=== PATIENT | female | born 1950 | race Native Hawaiian/Other Pacific Islander ===

== ENCOUNTER 2016-11-23 10:25 | Day surgery (SDC) | payer MEDICARE, OTHER ==
[2016-11-21 08:28] VITALS: BMI 30.7
[~2016-11-23 10:25] MED LIST: LACTATED RINGERS 1,000 ML IV SCH
[2016-11-23 12:17] VITALS: RESP 16; TEMP 98.8
[2016-11-23] MEDS ORDERED: LIDOCAINE 1% 20 ML VIAL (10MG/ML) FOR IV START INTRADERMA ONE (12:24)
[2016-11-23] MEDS ORDERED: PROPOFOL 10 MG/ML 20 ML VIAL IV ONE (13:11)
--- NOTE | 2016-11-23 13:41 | P.PCN ---
Date of Procedure: 11/23/16 Preoperative Diagnosis: Postoperative Diagnosis: Procedure(s) Performed: Procedure: Total colonoscopy. Preoperative diagnosis: Unexplained right-sided abdominal pain. Postoperative diagnosis: Examination of the colon and terminal ileum within normal limits. Preparation: HalfLytely prep. Sedation: Was provided by anesthesia. Brief clinical history: The patient is a 65-year-old female who I have evaluated in the office regarding unexplained abdominal pain. There is no change in bowel habits. CT of the abdomen was not revealing. A prior colonoscopy was more than 9 years ago. Procedure: With the patient on her left lateral decubitus position and after informed consent and adequate sedation, the perianal area was inspected and it did not show any fissures or fistulas. There were no masses felt on digital rectal examination. The Olympus CFQ 160L video colonoscope was then inserted in the rectum in the usual fashion and advanced to the cecum. I intubated the ileocecal valve and examined the terminal ileum. Terminal ileum and colon appeared healthy with no edema, erythema, friability, ulceration, exudation or spontaneous bleeding. No polyps or tumors were seen or any obvious diverticular disease or other pathology. I retroflexed the endoscope in the rectum before the endoscope was withdrawn. The patient tolerated the procedure well. Plan: The patient was reassured. She will follow-up with you as planned and I will keep you updated on her progress. Implants: Indications for Procedure: Operative Findings: Description of Procedure:
[2016-11-23 14:04] VITALS: BP 150/87; PULSE 65
== END 2016-11-23 14:09 | disposition home or self-care (01) ==
LOC: ORWHC2ENDO 10:25
DX: R10.9 Unspecified abdominal pain (principal); I10 Essential (primary) hypertension; Z79.82 Long term (current) use of aspirin; Z79.899 Other long term (current) drug therapy; Z88.0 Allergy status to penicillin
CPT/HCPCS: 45378; J2704

== ENCOUNTER → 2018-03-06 | Outpatient (CLI) | payer MEDICARE, OTHER ==
--- NOTE | 2018-03-07 08:53 | MM ---
Reason for exam: screening (asymptomatic). Last mammogram was performed 3 years and 1 month ago. History: Patient is postmenopausal. Family history of breast cancer in cousin. Took estrogen for 7 years. Physical Findings: A clinical breast exam by your physician is recommended on an annual basis and results should be correlated with mammographic findings. MG 3D Screening Mammo W/Cad Bilateral CC and MLO view(s) were taken. Prior study comparison: January 21, 2015, bilateral MG screening mammo w CAD. August 04, 2011, [facility] DIGITAL RIGHT MAMMOGRAM w/CAD. The breast tissue is heterogeneously dense. This may lower the sensitivity of mammography. Stable benign calcifications. There is no discrete abnormality. No significant changes when compared with prior studies. ASSESSMENT: Benign, BI-RAD 2 RECOMMENDATION: Routine screening mammogram of both breasts in 1 year.
== END | disposition home or self-care (01) ==
LOC: RADMAMWWP 11:31
PROVIDERS: ATTEND Family Medicine
DX: Z12.31 Encounter for screening mammogram for malignant neoplasm of breast (principal)
CPT/HCPCS: 77063; 77067

== ENCOUNTER → 2018-10-09 | Outpatient (CLI) | payer MEDICARE, OTHER ==
[2018-10-09 13:57] LABS: Blood Urea Nitrogen 22 mg/dL (7-17)
--- NOTE | 2018-10-09 17:10 | CT ---
EXAMINATION TYPE: CT chest w con DATE OF EXAM: 10/09/2018 COMPARISON: 06/09/2010 HISTORY: Pulmonary nodule CT DLP: 291.8 mGycm, Automated exposure control for dose reduction was used. CONTRAST: Performed injected with 100 mL of Isovue 300. TECHNIQUE: Axial images were obtained at 5 mm thick sections. Reconstructed images are reviewed on [employer] computer in the coronal plane. FINDINGS: Portion of the thyroid visualized is normal. There is a linear area of increased thickening within the right middle lobe measuring 0.5 cm in trans verse dimension. Series 4 image 24. Small nodule right middle lobe measures 0.5 cm. Series 4 image 28 . No enlarged mediastinal or hilar adenopathy is evident. The ascending aorta diameter at the level o f the main pulmonary artery is 3.2 cm. The main pulmonary artery diameter at the bifurcation is 2.[address] sections are obtained through the upper abdomen. Abdomen is essentially unremarkable. IMPRESSIONS: 1. There are 2 small areas of increased density within the right midlung. Short-term follow-up is rec ommended with CT chest in 3 months.
== END | disposition home or self-care (01) ==
LOC: RADCTMAIN 13:02
PROVIDERS: ATTEND Physician Assistant Medical
DX: R91.8 Other nonspecific abnormal finding of lung field (principal); Z01.812 Encounter for preprocedural laboratory examination; I10 Essential (primary) hypertension
CPT/HCPCS: 82565; 84520; 71260; 36415; Q9967

== ENCOUNTER → 2019-03-14 | Outpatient (CLI) | payer MEDICARE, OTHER ==
--- NOTE | 2019-03-17 14:18 | MM ---
Reason for exam: screening (asymptomatic). Last mammogram was performed 1 year ago. History: Patient is postmenopausal. Family history of breast cancer in cousin. Took estrogen for 7 years. Physical Findings: A clinical breast exam by your physician is recommended on an annual basis and results should be correlated with mammographic findings. MG 3D Screening Mammo W/Cad Bilateral CC and MLO view(s) were taken. Prior study comparison: March 06, 2018, bilateral MG 3d screening mammo w/cad. January 21, 2015, bilateral MG screening mammo w CAD. The breast tissue is heterogeneously dense. This may lower the sensitivity of mammography. There are benign appearing round vasculr calcifications bilaterally. There is chronic nodularity in the right breast. There is no discrete abnormality. ASSESSMENT: Benign, BI-RAD 2 RECOMMENDATION: Routine screening mammogram of both breasts in 1 year.
== END | disposition home or self-care (01) ==
LOC: RADMAMWWP 09:31
PROVIDERS: ATTEND Family Medicine
DX: Z12.31 Encounter for screening mammogram for malignant neoplasm of breast (principal)
CPT/HCPCS: 77063; 77067

== ENCOUNTER 2019-07-30 06:14 | Emergency (ER) | payer MEDICARE, OTHER ==
[2019-07-30 06:24] VITALS: TEMP 97.8
[2019-07-30] MEDS ORDERED: hydrALAZINE HCL 20 MG/ML 1 ML VIAL IVP STA (06:24)
--- NOTE | 2019-07-30 06:31 | ED ---
Recheck HPI - General Chief Complaint: Recheck/Abnormal Lab/Rx Stated Complaint: hypertension Time Seen by Provider: 07/30/19 06:22 Source: patient Mode of arrival: EMS - History of Present Illness Initial Comments: 68-year-old female presenting today for chief complaint of elevated blood pressure out of medications x1 week , just feeling "off" x 1 day. She states that she has history of elevated blood pressure and has been out of her medication for 1 week due to an area between her primary care physician and the pharmacy she uses. 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 She states she just fell off this morning took her blood pressure and noticed that it was 220/117. She states she was concerned and called EMS for transportation to the emergency department. Patient denies any history of CVA or myocardial infarction. Patient denies any chest pain shortness of breath dizziness visual changes headache nausea vomiting epigastric pain back pain leg swelling decreased urine output or any other complaints at this time. Patient appears well she is not diaphoretic does not appear in distress normal respiration rate. - Related Data Home Medications Medication Instructions Recorded Confirmed Aspirin 325 mg PO DAILY 10/29/14 11/21/16 Losartan/Hydrochlorothiazide 1 each PO DAILY 11/21/16 11/23/16 [Losartan-Hctz 100-25 mg Tab] Previous Rx's Medication Instructions Recorded Losartan/Hydrochlorothiazide 1 tab PO DAILY 7 Days #7 tab 07/30/19 [Losartan-Hctz 100-25 mg Tab] Allergies Allergy/AdvReac Type Severity Reaction Status Date / Time amoxicillin [From Augmentin] AdvReac Diarrhea Verified 07/30/19 06:24 clavulanic acid AdvReac Diarrhea Verified 07/30/19 06:24 [From Augmentin] Review of Systems ROS Statement: Those systems with pertinent positive or pertinent negative responses have been documented in the HPI. ROS Other: All systems not noted in ROS Statement are negative. Past Medical History Past Medical History: Hypertension, Osteoarthritis (OA) History of Any Multi-Drug Resistant Organisms: None Reported Past Surgical History: Hysterectomy Additional Past Surgical History / Comment(s): cervical fusion Past Anesthesia/Blood Transfusion Reactions: No Reported Reaction Past Psychological History: No Psychological Hx Reported Smoking Status: Former smoker - Past Family History Mother Family Medical History: No Reported History General Exam - General Exam Comments Initial Comments: General: The patient is awake and alert, in no distress, and does not appear acutely ill. Eye: +3 mm pupils are equal, round and reactive to light, extra-ocular movements are intact. No nystagmus. There is normal conjunctiva bilaterally. No signs of icterus. Ears, nose, mouth and throat: There are moist mucous membranes and no oral lesions. Neck: The neck is supple, there is no tenderness or JVD. Cardiovascular: There is a regular rate and rhythm. No murmur, rub or gallop is appreciated. Respiratory: Lungs are clear to auscultation, respirations are non-labored, breath sounds are equal. No wheezes, stridor, rales, or rhonchi. Gastrointestinal: Soft, non-distended, non-tender abdomen without masses or organomegaly noted. There is no rebound or guarding present. No pulsatile masses Musculoskeletal: Normal ROM, no tenderness. Strength 5/5. Sensation intact. Pulses equal bilaterally 2+. Neurological: A&O x 3. CN II-XII intact, There are no obvious motor or sensory deficits. Coordination appears grossly intact. Speech is normal. Skin: Skin is warm and dry and no rashes or lesions are noted. No LE edema. Psychiatric: Cooperative, appropriate mood & affect, normal judgment. Course Vital Signs 07/30/19 07/30/19 07/30/19 06:16 06:49 07:37 Temperature 97.8 F Pulse Rate 67 80 80 Respiratory 18 16 18 Rate Blood Pressure 215/99 181/82 158/78 O2 Sat by Pulse 98 96 98 Oximetry 07/30/19 07:58 Temperature Pulse Rate 80 Respiratory 18 Rate Blood Pressure 173/85 O2 Sat by Pulse 98 Oximetry Medical Decision Making - Medical Decision Making 68-year-old female presenting for elevated blood pressure. Patient has been off her medications for the past week. Patient unable to get refills. Patient hype rtensive on arrival with no complaints she states she did feel slightly off this morning otherwise no focal or symptoms. Denies any symptoms or sensation of feeling unwell on arrival. Patient blood pressure trending downward after IV treatment. Laboratory studies stable. EKG no acute findings. No history of CP or SOB. Patient was given 1 oral dose for extended treatment. Patient ambulated after treatment denies dizziness or lightheadedness. I discussed elevated glucose and importance of PCP management including obtaining HgA1c. Patient verbalized understanding was agreeable to both discharge and care plan. Discussed case with Dr Andre who reviewed case/EKG he is agreeable to plan and discharge of patient. - Lab Data Result diagrams: 07/30/19 06:30 07/30/19 06:30 Lab Results 07/30/19 07/30/19 07/30/19 Range/Units 06:30 06:30 06:30 WBC 5.9 (3.8-10.6) k/uL RBC 4.02 (3.80-5.40) m/uL Hgb 11.2 L (11.4-16.0) gm/dL Hct 33.2 L (34.0-46.0) % MCV 82.6 (80.0-100.0) fL MCH 27.8 (25.0-35.0) pg MCHC 33.7 (31.0-37.0) g/dL RDW 13.2 (11.5-15.5) % Plt Count 365 (150-450) k/uL Neutrophils % 60 % Lymphocytes % 26 % Monocytes % 4 % Eosinophils % 7 % Basophils % 1 % Neutrophils # 3.5 (1.3-7.7) k/uL Lymphocytes # 1.5 (1.0-4.8) k/uL Monocytes # 0.3 (0-1.0) k/uL Eosinophils # 0.4 (0-0.7) k/uL Basophils # 0.1 (0-0.2) k/uL Sodium 141 (137-145) mmol/L Potassium 3.8 (3.5-5.1) mmol/L Chloride 109 H (98-107) mmol/L Carbon Dioxide 23 (22-30) mmol/L Anion Gap 9 mmol/L BUN 20 H (7-17) mg/dL Creatinine 0.62 (0.52-1.04) mg/dL Est GFR (CKD-EPI)AfAm >90 (>60 ml/min/1.73 sqM) Est GFR (CKD-EPI)NonAf >90 (>60 ml/min/1.73 sqM) Glucose 143 H (74-99) mg/dL Calcium 8.8 (8.4-10.2) mg/dL Total Bilirubin 0.4 (0.2-1.3) mg/dL AST 22 (14-36) U/L ALT 14 (4-34) U/L Alkaline Phosphatase 114 (38-126) U/L Troponin I <0.012 (0.000-0.034) ng/mL Total Protein 6.7 (6.3-8.2) g/dL Albumin 3.7 (3.5-5.0) g/dL Urine Color Urine Appearance (Clear) Urine pH (5.0-8.0) Ur Specific [place] (1.001-1.035) Urine Protein (Negative) Urine Glucose (UA) (Negative) Urine Ketones (Negative) Urine Blood (Negative) Urine Nitrite (Negative) Urine Bilirubin (Negative) Urine Urobilinogen (<2.0) mg/dL Ur Leukocyte Esterase (Negative) Urine RBC (0-5) /hpf Urine WBC (0-5) /hpf Urine Mucus (None) /hpf 07/30/19 Range/Units 06:40 WBC (3.8-10.6) k/uL RBC (3.80-5.40) m/uL Hgb (11.4-16.0) gm/dL Hct (34.0-46.0) % MCV (80.0-100.0) fL MCH (25.0-35.0) pg MCHC (31.0-37.0) g/dL RDW (11.5-15.5) % Plt Count (150-450) k/uL Neutrophils % % Lymphocytes % % Monocytes % % Eosinophils % % Basophils % % Neutrophils # (1.3-7.7) k/uL Lymphocytes # (1.0-4.8) k/uL Monocytes # (0-1.0) k/uL Eosinophils # (0-0.7) k/uL Basophils # (0-0.2) k/uL Sodium (137-145) mmol/L Potassium (3.5-5.1) mmol/L Chloride (98-107) mmol/L Carbon Dioxide (22-30) mmol/L Anion Gap mmol/L BUN (7-17) mg/dL Creatinine (0.52-1.04) mg/dL Est GFR (CKD-EPI)AfAm (>60 ml/min/1.73 sqM) Est GFR (CKD-EPI)NonAf (>60 ml/min/1.73 sqM) Glucose (74-99) mg/dL Calcium (8.4-10.2) mg/dL Total Bilirubin (0.2-1.3) mg/dL AST (14-36) U/L ALT (4-34) U/L Alkaline Phosphatase (38-126) U/L Troponin I (0.000-0.034) ng/mL Total Protein (6.3-8.2) g/dL Albumin (3.5-5.0) g/dL Urine Color Light Yellow Urine Appearance Clear (Clear) Urine pH 6.5 (5.0-8.0) Ur Specific [place] 1.008 (1.001-1.035) Urine Protein Negative (Negative) Urine Glucose (UA) Negative (Negative) Urine Ketones Negative (Negative) Urine Blood Negative (Negative) Urine Nitrite Negative (Negative) Urine Bilirubin Negative (Negative) Urine Urobilinogen <2.0 (<2.0) mg/dL Ur Leukocyte Esterase Moderate H (Negative) Urine RBC 2 (0-5) /hpf Urine WBC 9 H (0-5) /hpf Urine Mucus Rare H (None) /hpf - EKG Data EKG Comments: Ventricular rate 65 bpm, AK interval 172 ms, QRS duration 102 ms, QT/QTC 382/397 ms. This is normal sinus with noted sinus arrhythmia. There is no ST elevation or depression noted. With nonspecific T-wave. Disposition Clinical Impression: Elevated blood pressure reading, Medication refill Disposition: HOME SELF-CARE Condition: Good Instructions (If sedation given, give patient instructions): Hypertension (ED) Additional Instructions: Please use medication as discussed. Please follow-up with family doctor in the next 2 days to discuss prescriptions for elevated blood pressure. Please return to emergency room if the symptoms increase or worsen or for any other concerns. Prescriptions: Losartan/Hydrochlorothiazide [Losartan-Hctz 100-25 mg Tab] 1 tab PO DAILY 7 Days #7 tab Is patient prescribed a controlled substance at d/c from ED?: No Referrals: Jadon Romero DO [Primary Care Provider] - 1-2 days Time of Disposition: 07:35
[2019-07-30 06:52] VITALS: PULSE 80
[2019-07-30 06:57] LABS: ALT 14 U/L (4-34); AST 22 U/L (14-36); African American GFR (CKD) >90 (>60 ml/min/1.73 sqM); Albumin 3.7 g/dL (3.5-5.0); Alkaline Phosphatase 114 U/L (38-126); Anion Gap 9 mmol/L; Blood Urea Nitrogen 20 mg/dL (7-17); Calcium 8.8 mg/dL (8.4-10.2); Carbon Dioxide 23 mmol/L (22-30); Chloride 109 mmol/L (98-107); Glucose 143 mg/dL (74-99); Non-African American GFR(CKD) >90 (>60 ml/min/1.73 sqM); Potassium 3.8 mmol/L (3.5-5.1); Sodium 141 mmol/L (137-145); Total Bilirubin 0.4 mg/dL (0.2-1.3); Total Protein 6.7 g/dL (6.3-8.2)
--- NOTE | 2019-07-30 07:02 | XR ---
EXAM: XR Chest, 2 Views CLINICAL HISTORY: ITS.REASON XR Reason: elevated BP, feeling off TECHNIQUE: Frontal and lateral views of the chest. COMPARISON: No relevant prior studies available. FINDINGS: Lungs: No consolidation or mass. Pleural space: No effusion. Heart: cardiomegaly. Bones/joints: No acute findings. IMPRESSION: No acute cardiopulmonary process. Cardiomegaly.
[2019-07-30 07:27] LABS: Appearance,Urine Clear (Clear); Bilirubin,Urine Negative (Negative); Blood,Urine Negative (Negative); Color,Urine Light Yellow; Glucose,Urine (UA) Negative (Negative); Ketones,Urine Negative (Negative); Leukocyte Esterase,Urine Moderate (Negative); Mucus,Urine Rare /hpf; Nitrite,Urine Negative (Negative); PH, Urine 6.5 (5.0-8.0); Protein,Urine Negative (Negative); RBC,Urine 2 /hpf (0-5); Specific Gravity,Urine 1.008 (1.001-1.035); Urobilinogen,Urine <2.0 mg/dL (<2.0); WBC,Urine 9 /hpf (0-5)
[2019-07-30 07:30] LABS: Basophils # (A) 0.1 k/uL (0-0.2); Basophils % (A) 1 %; Eosinophils # (A) 0.4 k/uL (0-0.7); Eosinophils % (A) 7 %; HCT 33.2 % (34.0-46.0); HGB 11.2 gm/dL (11.4-16.0); Lymphocytes # (A) 1.5 k/uL (1.0-4.8); Lymphocytes % (A) 26 %; MCH 27.8 pg (25.0-35.0); MCHC 33.7 g/dL (31.0-37.0); MCV 82.6 fL (80.0-100.0); Mean Platelet Volume 7.9; Monocytes # (A) 0.3 k/uL (0-1.0); Monocytes % (A) 4 %; Neutrophils # (A) 3.5 k/uL (1.3-7.7); Neutrophils % (A) 60 %; Platelet Count 365 k/uL (150-450); RBC 4.02 m/uL (3.80-5.40); RDW 13.2 % (11.5-15.5); WBC 5.9 k/uL (3.8-10.6)
[2019-07-30 07:38] VITALS: RESP 18
[2019-07-30 08:08] VITALS: BP 173/85
[2019-07-30] MEDS ORDERED: LOSARTAN-HCTZ 50-12.5 MG 1 EACH TAB PO SCH (09:00)
== END 2019-07-30 07:58 | disposition home or self-care (01) ==
LOC: EC 06:14
DX: I10 Essential (primary) hypertension (principal); Z76.0 Encounter for issue of repeat prescription; T46.5X6A Underdosing of other antihypertensive drugs, initial encounter; Z91.138 Patient's unintentional underdosing of medication regimen for other reason; M19.90 Unspecified osteoarthritis, unspecified site; Z87.891 Personal history of nicotine dependence; Z88.0 Allergy status to penicillin; Z79.82 Long term (current) use of aspirin; Z79.899 Other long term (current) drug therapy; Z98.1 Arthrodesis status
CPT/HCPCS: 36415; 93005; 80053; 84484; 85025; 81001; 71046; 99284; 96374; J0360

== ENCOUNTER 2020-06-22 17:34 | Emergency (ER) | payer MEDICARE, OTHER ==
[2020-06-22 17:47] VITALS: RESP 18
[2020-06-22 18:14] LABS: Basophils # (A) 0.1 k/uL (0-0.2); Basophils % (A) 1 %; Eosinophils # (A) 0.4 k/uL (0-0.7); Eosinophils % (A) 5 %; HCT 37.4 % (34.0-46.0); Lymphocytes # (A) 2.1 k/uL (1.0-4.8); Lymphocytes % (A) 26 %; MCH 29.1 pg (25.0-35.0); MCHC 34.8 g/dL (31.0-37.0); MCV 83.6 fL (80.0-100.0); Mean Platelet Volume 7.2; Monocytes # (A) 0.4 k/uL (0-1.0); Monocytes % (A) 5 %; Neutrophils # (A) 4.9 k/uL (1.3-7.7); Neutrophils % (A) 62 %; Platelet Count 393 k/uL (150-450); RBC 4.47 m/uL (3.80-5.40); RDW 13.4 % (11.5-15.5)
[2020-06-22 18:32] LABS: Albumin 4.2 g/dL (3.5-5.0); Calcium 9.4 mg/dL (8.4-10.2); Potassium 3.5 mmol/L (3.5-5.1); Total Bilirubin 0.4 mg/dL (0.2-1.3); Total Protein 7.4 g/dL (6.3-8.2)
[2020-06-22 18:47] LABS: Partial Thromboplastin Time 24.4 sec (22.0-30.0)
--- NOTE | 2020-06-22 19:32 | CT ---
EXAMINATION TYPE: CT brain wo con for TPA DATE OF EXAM: 06/22/2020 HISTORY: Left side numbness CT DLP: 1083.8 mGycm. Automated Exposure Control for Dose Reduction was Utilized. TECHNIQUE: CT scan of the head is performed without contrast. COMPARISON: CT brain October 29, 2014. FINDINGS: There is no acute intracranial hemorrhage or midline shift identified. There is diffuse v entricular and sulcal prominence consistent with diffuse age-related cerebral atrophy. There is low- attenuation in the periventricular white matter consistent with chronic small vessel ischemic change. The globes are intact and the visualized sinuses are clear. IMPRESSION: No acute intracranial hemorrhage or midline shift. There is mild to minimal diffuse age -related cerebral atrophy and mild chronic small vessel ischemic change redemonstrated. No significa nt change from 2015 CT.
--- NOTE | 2020-06-22 19:55 | CT ---
EXAMINATION TYPE: CT angio head neck DATE OF EXAM: 06/22/2020 HISTORY: Left side numbness COMPARISON: None. CT DLP: 520.2 mGycm. Automated Exposure Control for Dose Reduction was Utilized. TECHNIQUE: CTA scan of the head and neck are performed with IV Contrast, patient injected with 65 mL of Isovue 370, axial images are obtained, coronal and sagittal reformatted images are reviewed. Thre e-D reconstructed images are created on an independent workstation and reviewed. FINDINGS: Carotid/Vascular Structures: Normal 3 vessel origin from aortic arch. Right common carotid artery joyce ws normal origin from right brachiocephalic artery. Mild calcified plaque left right carotid bulb. Mo re moderate mixed plaque left carotid bulb extending into proximal internal carotid artery. No signif icant stenosis in common or internal carotid arteries bilaterally. No significant plaque or stenosis in the external carotid arteries bilaterally. Dominant left vertebral artery. Vertebral arteries are patent to basilar junction. Hypoplastic bilate ral posterior communicating arteries. No significant focal stenosis or aneurysmal change in the poste rior circulation. There is poor visualization or hypoplastic anterior communicating artery. No signif icant focal stenosis or aneurysmal change in the anterior circulation is identified. Other: Moderate disc space narrowing C4-C5 and C5-C6 levels. Some ossific fusion C6-C7 level. Moderat e disc space narrowing T1-T2 level. Some effacement of the anterior thecal sac in the mid to lower ce rvical spine due to bony protrusions. Subtle spondylolisthesis. IMPRESSION: No significant stenosis in common or internal carotid arteries bilaterally. No significa nt stenosis or focal aneurysm at the level of the [place].
--- NOTE | 2020-06-22 20:05 | ED ---
General Adult HPI - General Chief complaint: Recheck/Abnormal Lab/Rx Stated complaint: Numbness Time Seen by Provider: 06/22/20 17:41 Source: patient Mode of arrival: EMS Limitations: no limitations - History of Present Illness Initial comments: This 69-year-old female presents with a complaint of some paresthesias which started shortly prior to arrival and subsequently resolved. She denies any previous similar incidents. They were located primarily in her left periorbital region and her left shoulder and down her left arm. She denies any weakness. She denies any problems with coordination, speech abnormalities, or vision changes. She denies any other neurologic problems whatsoever. There is no chest pain or shortness of breath. She denies any recent fever or chills. No other complaints or modifying factors. - Related Data Home Medications Medication Instructions Recorded Confirmed Aspirin 325 mg PO DAILY 10/29/14 11/21/16 Losartan/Hydrochlorothiazide 1 each PO DAILY 11/21/16 11/23/16 [Losartan-Hctz 100-25 mg Tab] Previous Rx's Medication Instructions Recorded Losartan/Hydrochlorothiazide 1 tab PO DAILY 7 Days #7 tab 07/30/19 [Losartan-Hctz 100-25 mg Tab] Allergies Allergy/AdvReac Type Severity Reaction Status Date / Time amoxicillin [From Augmentin] AdvReac Diarrhea Verified 06/22/20 17:47 clavulanic acid AdvReac Diarrhea Verified 06/22/20 17:47 [From Augmentin] Review of Systems ROS Statement: Those systems with pertinent positive or pertinent negative responses have been documented in the HPI. ROS Other: All systems not noted in ROS Statement are negative. Past Medical History Past Medical History: Hypertension, Osteoarthritis (OA) History of Any Multi-Drug Resistant Organisms: None Reported Past Surgical History: Hysterectomy Additional Past Surgical History / Comment(s): cervical fusion Past Anesthesia/Blood Transfusion Reactions: No Reported Reaction Past Psychological History: No Psychological Hx Reported Smoking Status: Never smoker Past Alcohol Use History: None Reported Past Drug Use History: None Reported - Past Family History Mother Family Medical History: No Reported History General Exam - General Exam Comments Initial Comments: Constitutional: Alert and oriented, no apparent distress Vitals: Reviewed, please see nursing notes HEENT: No gross trauma identified, trachea midline, no respiratory distress Neck: No tenderness, good range of motion Heart: Regular rate and rhythm without murmur Lungs: Clear to auscultation bilaterally, no wheezing rhonchi or rales Abdomen: No tenderness or peritoneal signs noted, nondistended Back: No tenderness Neurologic: No gross sensory or motor deficits identified. Speech is intact. No coordination abnormalities. Integumentary: No rash or change in pigmentation Psychiatric: Alert and oriented, appropriate mood and affect Limitations: no limitations Course Vital Signs 06/22/20 06/22/20 06/22/20 17:35 18:00 19:00 Temperature 97.9 F Pulse Rate 80 78 75 Respiratory 18 18 18 Rate Blood Pressure 165/86 125/70 134/77 O2 Sat by Pulse 97 100 99 Oximetry Medical Decision Making - Medical Decision Making The patient was seen and examined. All diagnostics were reviewed. The EKG shows a normal sinus rhythm at a rate of 75. No acute ST-T wave changes are identified. The [place] intervals 182, QRS duration is 90, and the QTC intervals 444. The patient had a computed tomography scan of the brain which did not show any acute abnormalities. There is some age-related changes. The patient also had a CTA of the head and neck which did not show any acute abnormalities with some neck arthritis. The laboratory was reviewed and does not show any acute abnormalities as well. Overall, the exact cause of patient's paresthesias are not definitively determined. It is felt as though she is stable for discharge home and close follow-up with her doctor. She is instructed to take an aspirin daily. She also was instructed to return if her symptoms recur or worsen. She is agreeable with this plan and leaves in no distress. Her symptomatology has resolved prior to coming into the emergency department. - Lab Data Result diagrams: 06/22/20 18:02 06/22/20 18:02 Lab Results 06/22/20 06/22/20 06/22/20 Range/Units 18:02 18:02 18:02 WBC 8.0 (3.8-10.6) k/uL RBC 4.47 (3.80-5.40) m/uL Hgb 13.0 (11.4-16.0) gm/dL Hct 37.4 (34.0-46.0) % MCV 83.6 (80.0-100.0) fL MCH 29.1 (25.0-35.0) pg MCHC 34.8 (31.0-37.0) g/dL RDW 13.4 (11.5-15.5) % Plt Count 393 (150-450) k/uL MPV 7.2 Neutrophils % 62 % Lymphocytes % 26 % Monocytes % 5 % Eosinophils % 5 % Basophils % 1 % Neutrophils # 4.9 (1.3-7.7) k/uL Lymphocytes # 2.1 (1.0-4.8) k/uL Monocytes # 0.4 (0-1.0) k/uL Eosinophils # 0.4 (0-0.7) k/uL Basophils # 0.1 (0-0.2) k/uL PT 10.0 (9.0-12.0) sec INR 1.0 (<1.2) APTT 24.4 (22.0-30.0) sec Sodium 138 (137-145) mmol/L Potassium 3.5 (3.5-5.1) mmol/L Chloride 104 (98-107) mmol/L Carbon Dioxide 27 (22-30) mmol/L Anion Gap 7 mmol/L BUN 35 H (7-17) mg/dL Creatinine 1.07 H (0.52-1.04) mg/dL Est GFR (CKD-EPI)AfAm 61 (>60 ml/min/1.73 sqM) Est GFR (CKD-EPI)NonAf 53 (>60 ml/min/1.73 sqM) Glucose 117 H (74-99) mg/dL Calcium 9.4 (8.4-10.2) mg/dL Total Bilirubin 0.4 (0.2-1.3) mg/dL AST 29 (14-36) U/L ALT 25 (4-34) U/L Alkaline Phosphatase 118 (38-126) U/L Troponin I (0.000-0.034) ng/mL Total Protein 7.4 (6.3-8.2) g/dL Albumin 4.2 (3.5-5.0) g/dL 06/22/20 Range/Units 18:02 WBC (3.8-10.6) k/uL RBC (3.80-5.40) m/uL Hgb (11.4-16.0) gm/dL Hct (34.0-46.0) % MCV (80.0-100.0) fL MCH (25.0-35.0) pg MCHC (31.0-37.0) g/dL RDW (11.5-15.5) % Plt Count (150-450) k/uL MPV Neutrophils % % Lymphocytes % % Monocytes % % Eosinophils % % Basophils % % Neutrophils # (1.3-7.7) k/uL Lymphocytes # (1.0-4.8) k/uL Monocytes # (0-1.0) k/uL Eosinophils # (0-0.7) k/uL Basophils # (0-0.2) k/uL PT (9.0-12.0) sec INR (<1.2) APTT (22.0-30.0) sec Sodium (137-145) mmol/L Potassium (3.5-5.1) mmol/L Chloride (98-107) mmol/L Carbon Dioxide (22-30) mmol/L Anion Gap mmol/L BUN (7-17) mg/dL Creatinine (0.52-1.04) mg/dL Est GFR (CKD-EPI)AfAm (>60 ml/min/1.73 sqM) Est GFR (CKD-EPI)NonAf (>60 ml/min/1.73 sqM) Glucose (74-99) mg/dL Calcium (8.4-10.2) mg/dL Total Bilirubin (0.2-1.3) mg/dL AST (14-36) U/L ALT (4-34) U/L Alkaline Phosphatase (38-126) U/L Troponin I <0.012 (0.000-0.034) ng/mL Total Protein (6.3-8.2) g/dL Albumin (3.5-5.0) g/dL Disposition Clinical Impression: Paresthesias Disposition: HOME SELF-CARE Condition: Good Instructions (If sedation given, give patient instructions): Paresthesia (ED) Additional Instructions: Please take a baby aspirin daily. Is patient prescribed a controlled substance at d/c from ED?: No Referrals: Jadon Romero DO [Primary Care Provider] - 1-2 days Time of Disposition: 20:04
[2020-06-22 20:13] VITALS: BP 149/71; PULSE 84; TEMP 98.1
== END 2020-06-22 20:20 | disposition home or self-care (01) ==
LOC: EC 17:34
DX: R20.2 Paresthesia of skin (principal); I10 Essential (primary) hypertension; M19.90 Unspecified osteoarthritis, unspecified site; Z79.82 Long term (current) use of aspirin; Z79.899 Other long term (current) drug therapy; Z88.0 Allergy status to penicillin; Z88.1 Allergy status to other antibiotic agents
CPT/HCPCS: 36415; 93005; 80053; 84484; 85025; 85610; 85730; 70496; 70450; 70498; 99284; Q9967

== ENCOUNTER 2020-07-07 07:27 | Emergency (ER) | payer MEDICARE, OTHER ==
[2020-07-07 07:33] VITALS: TEMP 98.3
--- NOTE | 2020-07-07 07:48 | ED ---
General Adult HPI - General Chief complaint: Abdominal Pain Stated complaint: vomiting/weakness Time Seen by Provider: 07/07/20 07:31 Source: patient, EMS Mode of arrival: EMS Limitations: no limitations - History of Present Illness Initial comments: Dictation was produced using [employer] dictation software. please excuse any grammatical, word or spelling errors. This patient was cared for during a federal and state declared state of emergency secondary to Covid 19 Chief Complaint: 69-year-old male presents with abdominal pain nausea vomiting and diarrhea History of Present Illness:-year-old male she presents to us from home via EMS. Patient states that since last night she's been having diarrhea, nausea and vomiting and abdominal pain. Patient states that the abdominal pain is lateral full abdomen. She localizes the center of her symptoms to her supraumbilical area. Patient states she had some spaghetti last night. She did have nonbilious nonbloody diarrhea and nonbilious not bloody emesis. Patient has any fever, chills or night sweats. She denies any respiratory symptoms. No sore throat or runny nose. No cough. Denies any urinary symptoms. Patient has history of hysterectomy. No other abdominal surgeries. Denies any recent travel. She does not believe she was food poisoning. EMS gave patient some Zofran and she reports significant improvement of her symptoms. The ROS documented in this emergency department record has been reviewed and confirmed by me. Those systems with pertinent positive or negative responses have been documented in the HPI. All other systems are other negative and/or noncontributory. PHYSICAL EXAM: General Impression: Alert and oriented x3, not in acute distress HEENT: Normocephalic atraumatic, extra-ocular movements intact, pupils equal and reactive to light bilaterally, mucous membranes moist. Cardiovascular: Heart regular rate and rhythm Chest: Able to complete full sentences, no retractions, no tachypnea Abdomen: abdomen soft, no pain at McBurney's point, no rebound tenderness to the abdomen, negative Tracy sign, non-distended, no organomegaly Musculoskeletal: Pulses present and equal in all extremities, no peripheral edema Motor: no focal deficits noted Neurological: CN II-XII grossly intact, no focal motor or sensory deficits noted Skin: Intact with no visualized rashes Psych: Normal affect and mood ED course: 69 y Old female presents with nausea, vomiting, abdominal pain and diarrhea. As upon arrival are within acceptable limits. Patient is well- appearing at bedside. She is actively vomiting or does not appear to be in acute distress. Her abdominal exam is benign. Laboratory evaluation obtained. Mild leukocytosis of 13.1, metabolic panel is unremarkable. Rest of CBC is negative. Urinalysis is unremarkable. Rotavirus test is negative. Value at bedside with significant improvement of her symptoms. Patient repeat abdominal exam is benign. She does however report some slight symptoms at her left lower quadrant. Clinical presentation is concerning for possible diverticulitis although are very unlikely. Patient be covered with antibiotics. She is given return precautions. Patient also given antiemetics. - Related Data Home Medications Medication Instructions Recorded Confirmed Aspirin 325 mg PO DAILY 10/29/14 11/21/16 Losartan/Hydrochlorothiazide 1 each PO DAILY 11/21/16 11/23/16 [Losartan-Hctz 100-25 mg Tab] Previous Rx's Medication Instructions Recorded Losartan/Hydrochlorothiazide 1 tab PO DAILY 7 Days #7 tab 07/30/19 [Losartan-Hctz 100-25 mg Tab] Moxifloxacin HCl 400 mg PO DAILY 10 Days #10 tab 07/07/20 Ondansetron Odt [Zofran Odt] 4 mg PO Q8HR PRN #12 tab 07/07/20 Allergies Allergy/AdvReac Type Severity Reaction Status Date / Time amoxicillin [From Augmentin] AdvReac Diarrhea Verified 07/07/20 07:34 clavulanic acid AdvReac Diarrhea Verified 07/07/20 07:34 [From Augmentin] Review of Systems ROS Statement: Those systems with pertinent positive or pertinent negative responses have been documented in the HPI. ROS Other: All systems not noted in ROS Statement are negative. Past Medical History Past Medical History: Hypertension, Osteoarthritis (OA) History of Any Multi-Drug Resistant Organisms: None Reported Past Surgical History: Hysterectomy Additional Past Surgical History / Comment(s): cervical fusion Past Anesthesia/Blood Transfusion Reactions: No Reported Reaction Past Psychological History: No Psychological Hx Reported Smoking Status: Never smoker Past Alcohol Use History: None Reported Past Drug Use History: None Reported - Past Family History Mother Family Medical History: No Reported History General Exam Limitations: no limitations Course Vital Signs 07/07/20 07:28 Temperature 98.3 F Pulse Rate 92 Respiratory 17 Rate Blood Pressure 173/87 O2 Sat by Pulse 99 Oximetry Medical Decision Making - Lab Data Result diagrams: 07/07/20 07:37 07/07/20 07:37 Lab Results 07/07/20 07/07/20 07/07/20 Range/Units 07:37 07:37 07:37 WBC 13.1 H (3.8-10.6) k/uL RBC 4.76 (3.80-5.40) m/uL Hgb 13.0 (11.4-16.0) gm/dL Hct 40.7 (34.0-46.0) % MCV 85.4 (80.0-100.0) fL MCH 27.3 (25.0-35.0) pg MCHC 31.9 (31.0-37.0) g/dL RDW 13.8 (11.5-15.5) % Plt Count 454 H (150-450) k/uL MPV 7.4 Neutrophils % 85 % Lymphocytes % 9 % Monocytes % 4 % Eosinophils % 2 % Basophils % 0 % Neutrophils # 11.1 H (1.3-7.7) k/uL Lymphocytes # 1.2 (1.0-4.8) k/uL Monocytes # 0.5 (0-1.0) k/uL Eosinophils # 0.2 (0-0.7) k/uL Basophils # 0.0 (0-0.2) k/uL Sodium 140 (137-145) mmol/L Potassium 4.3 (3.5-5.1) mmol/L Chloride 107 (98-107) mmol/L Carbon Dioxide 26 (22-30) mmol/L Anion Gap 7 mmol/L BUN 27 H (7-17) mg/dL Creatinine 0.66 (0.52-1.04) mg/dL Est GFR (CKD-EPI)AfAm >90 (>60 ml/min/1.73 sqM) Est GFR (CKD-EPI)NonAf 90 (>60 ml/min/1.73 sqM) Glucose 191 H (74-99) mg/dL Calcium 9.3 (8.4-10.2) mg/dL Total Bilirubin 0.7 (0.2-1.3) mg/dL AST 26 (14-36) U/L ALT 23 (4-34) U/L Alkaline Phosphatase 96 (38-126) U/L Total Protein 7.1 (6.3-8.2) g/dL Albumin 4.1 (3.5-5.0) g/dL Lipase 105 (23-300) U/L Urine Color Yellow Urine Appearance Clear (Clear) Urine pH 6.5 (5.0-8.0) Ur Specific [place] 1.016 (1.001-1.035) Urine Protein 2+ H (Negative) Urine Glucose (UA) Negative (Negative) Urine Ketones Negative (Negative) Urine Blood Negative (Negative) Urine Nitrite Negative (Negative) Urine Bilirubin Negative (Negative) Urine Urobilinogen <2.0 (<2.0) mg/dL Ur Leukocyte Esterase Trace H (Negative) Urine RBC 1 (0-5) /hpf Urine WBC 2 (0-5) /hpf Ur Squamous Epith Cells <1 (0-4) /hpf Hyaline Casts 1 (0-2) /lpf Urine Mucus Rare H (None) /hpf Coronavirus (PCR) (Not Detectd) 07/07/20 Range/Units 07:37 WBC (3.8-10.6) k/uL RBC (3.80-5.40) m/uL Hgb (11.4-16.0) gm/dL Hct (34.0-46.0) % MCV (80.0-100.0) fL MCH (25.0-35.0) pg MCHC (31.0-37.0) g/dL RDW (11.5-15.5) % Plt Count (150-450) k/uL MPV Neutrophils % % Lymphocytes % % Monocytes % % Eosinophils % % Basophils % % Neutrophils # (1.3-7.7) k/uL Lymphocytes # (1.0-4.8) k/uL Monocytes # (0-1.0) k/uL Eosinophils # (0-0.7) k/uL Basophils # (0-0.2) k/uL Sodium (137-145) mmol/L Potassium (3.5-5.1) mmol/L Chloride (98-107) mmol/L Carbon Dioxide (22-30) mmol/L Anion Gap mmol/L BUN (7-17) mg/dL Creatinine (0.52-1.04) mg/dL Est GFR (CKD-EPI)AfAm (>60 ml/min/1.73 sqM) Est GFR (CKD-EPI)NonAf (>60 ml/min/1.73 sqM) Glucose (74-99) mg/dL Calcium (8.4-10.2) mg/dL Total Bilirubin (0.2-1.3) mg/dL AST (14-36) U/L ALT (4-34) U/L Alkaline Phosphatase (38-126) U/L Total Protein (6.3-8.2) g/dL Albumin (3.5-5.0) g/dL Lipase (23-300) U/L Urine Color Urine Appearance (Clear) Urine pH (5.0-8.0) Ur Specific [place] (1.001-1.035) Urine Protein (Negative) Urine Glucose (UA) (Negative) Urine Ketones (Negative) Urine Blood (Negative) Urine Nitrite (Negative) Urine Bilirubin (Negative) Urine Urobilinogen (<2.0) mg/dL Ur Leukocyte Esterase (Negative) Urine RBC (0-5) /hpf Urine WBC (0-5) /hpf Ur Squamous Epith Cells (0-4) /hpf Hyaline Casts (0-2) /lpf Urine Mucus (None) /hpf Coronavirus (PCR) Not Detected (Not Detectd) Disposition Clinical Impression: Abdominal pain Disposition: HOME SELF-CARE Condition: Good Instructions (If sedation given, give patient instructions): Abdominal Pain (ED) Prescriptions: Moxifloxacin HCl 400 mg PO DAILY 10 Days #10 tab Ondansetron Odt [Zofran Odt] 4 mg PO Q8HR PRN #12 tab PRN Reason: Nausea Is patient prescribed a controlled substance at d/c from ED?: No Referrals: Jadon Romero DO [Primary Care Provider] - 1-2 days Time of Disposition: 08:26
[2020-07-07 07:52] LABS: Basophils % (A) 0 %; Eosinophils # (A) 0.2 k/uL (0-0.7); Eosinophils % (A) 2 %; HCT 40.7 % (34.0-46.0); Lymphocytes # (A) 1.2 k/uL (1.0-4.8); Lymphocytes % (A) 9 %; MCH 27.3 pg (25.0-35.0); MCHC 31.9 g/dL (31.0-37.0); MCV 85.4 fL (80.0-100.0); Mean Platelet Volume 7.4; Monocytes # (A) 0.5 k/uL (0-1.0); Monocytes % (A) 4 %; Neutrophils # (A) 11.1 k/uL (1.3-7.7); Neutrophils % (A) 85 %; Platelet Count 454 k/uL (150-450); RBC 4.76 m/uL (3.80-5.40); RDW 13.8 % (11.5-15.5); WBC 13.1 k/uL (3.8-10.6)
[2020-07-07 07:54] LABS: Appearance,Urine Clear (Clear); Bilirubin,Urine Negative (Negative); Blood,Urine Negative (Negative); Color,Urine Yellow; Glucose,Urine (UA) Negative (Negative); Hyaline Casts,Urine 1 /lpf (0-2); Ketones,Urine Negative (Negative); Leukocyte Esterase,Urine Trace (Negative); Mucus,Urine Rare /hpf; Nitrite,Urine Negative (Negative); PH, Urine 6.5 (5.0-8.0); Protein,Urine 2+ (Negative); RBC,Urine 1 /hpf (0-5); Specific Gravity,Urine 1.016 (1.001-1.035); Squamous Epithelial Cell,Urine <1 /hpf (0-4); Urobilinogen,Urine <2.0 mg/dL (<2.0); WBC,Urine 2 /hpf (0-5)
[2020-07-07] MEDS ORDERED: SODIUM CHLORIDE 0.9% 1,000 ML IV STA (07:59)
[2020-07-07 08:17] LABS: ALT 23 U/L (4-34); AST 26 U/L (14-36); African American GFR (CKD) >90 (>60 ml/min/1.73 sqM); Albumin 4.1 g/dL (3.5-5.0); Alkaline Phosphatase 96 U/L (38-126); Anion Gap 7 mmol/L; Blood Urea Nitrogen 27 mg/dL (7-17); Calcium 9.3 mg/dL (8.4-10.2); Carbon Dioxide 26 mmol/L (22-30); Chloride 107 mmol/L (98-107); Glucose 191 mg/dL (74-99); Lipase 105 U/L (23-300); Non-African American GFR(CKD) 90 (>60 ml/min/1.73 sqM); Potassium 4.3 mmol/L (3.5-5.1); Sodium 140 mmol/L (137-145); Total Bilirubin 0.7 mg/dL (0.2-1.3); Total Protein 7.1 g/dL (6.3-8.2)
[2020-07-07 08:59] VITALS: BP 153/95; PULSE 90; RESP 16
== END 2020-07-07 10:01 | disposition home or self-care (01) ==
LOC: EC 07:27
DX: R10.9 Unspecified abdominal pain (principal); R19.7 Diarrhea, unspecified; R11.2 Nausea with vomiting, unspecified; D72.829 Elevated white blood cell count, unspecified; I10 Essential (primary) hypertension; M19.90 Unspecified osteoarthritis, unspecified site; Z20.828 Contact with and (suspected) exposure to other viral communicable diseases; Z79.82 Long term (current) use of aspirin; Z79.899 Other long term (current) drug therapy; Z88.0 Allergy status to penicillin; Z88.1 Allergy status to other antibiotic agents; Z90.710 Acquired absence of both cervix and uterus
CPT/HCPCS: 36415; 80053; 81001; 83690; 85025; 87635; 96360; 99284

== ENCOUNTER 2020-09-29 02:30 | Emergency (ER) | payer MEDICARE, OTHER ==
[2020-09-29 02:35] VITALS: TEMP 98.4
[2020-09-29 02:37] VITALS: RESP 18
[2020-09-29] MEDS ORDERED: cloNIDine HCL 0.2 MG TAB PO STA (02:46)
--- NOTE | 2020-09-29 02:50 | ED ---
General Adult HPI - General Chief complaint: Dizziness Stated complaint: Hypertension Time Seen by Provider: 09/29/20 02:38 Source: patient, EMS Mode of arrival: EMS Limitations: no limitations - History of Present Illness Initial comments: This patient is 69-year-old woman with history of hypertension who states that she has not been feeling right tonight. The patient notes that recently she has not been sleeping well and has been under a lot of stress due to the recent stroke that her had. Tonight she woke with a generalized headache, mo derate, aching, constant. She states she also was just not feeling right. She is having a hard time exactly characterizing this. The patient denied any strokelike symptoms including no change in vision, speech, swallowing. No weakness or numbness of the extremities. No change in coordination. She checked her blood pressure at home and found it was greater than 190/90 and when her son found out about this she called EMS. -: hour(s) Location: head Radiation: non-radiation Quality: aching Consistency: constant Improves with: none Worsens with: none Associated Symptoms: malaise Treatments Prior to Arrival: other (Metoprolol) - Related Data Home Medications Medication Instructions Recorded Confirmed Aspirin 325 mg PO DAILY 10/29/14 11/21/16 Losartan/Hydrochlorothiazide 1 each PO DAILY 11/21/16 11/23/16 [Losartan-Hctz 100-25 mg Tab] Previous Rx's Medication Instructions Recorded Losartan/Hydrochlorothiazide 1 tab PO DAILY 7 Days #7 tab 07/30/19 [Losartan-Hctz 100-25 mg Tab] Moxifloxacin HCl 400 mg PO DAILY 10 Days #10 tab 07/07/20 Ondansetron Odt [Zofran Odt] 4 mg PO Q8HR PRN #12 tab 07/07/20 Allergies Allergy/AdvReac Type Severity Reaction Status Date / Time amoxicillin [From Augmentin] AdvReac Diarrhea Verified 09/29/20 02:35 clavulanic acid AdvReac Diarrhea Verified 09/29/20 02:35 [From Augmentin] Review of Systems ROS Statement: Those systems with pertinent positive or pertinent negative responses have been documented in the HPI. ROS Other: All systems not noted in ROS Statement are negative. Constitutional: Denies: fever, weakness Eyes: Denies: vision change ENT: Denies: ear pain, hearing loss Respiratory: Denies: cough, dyspnea Cardiovascular: Denies: chest pain, palpitations, orthopnea, edema, syncope Gastrointestinal: Denies: abdominal pain, nausea, vomiting Genitourinary: Denies: dysuria, hematuria Musculoskeletal: Denies: back pain Skin: Denies: rash Neurological: Denies: headache, weakness, numbness, paresthesias Psychiatric: Reports: anxiety Past Medical History Past Medical History: Hypertension, Osteoarthritis (OA) History of Any Multi-Drug Resistant Organisms: None Reported Past Surgical History: Hysterectomy Additional Past Surgical History / Comment(s): cervical fusion Past Anesthesia/Blood Transfusion Reactions: No Reported Reaction Past Psychological History: No Psychological Hx Reported Smoking Status: Never smoker Past Alcohol Use History: None Reported Past Drug Use History: None Reported - Past Family History Mother Family Medical History: No Reported History General Exam Limitations: no limitations General appearance: alert, in no apparent distress, anxious Head exam: Present: atraumatic, normocephalic Eye exam: Present: normal appearance, PERRL, EOMI. Absent: scleral icterus, conjunctival injection, nystagmus ENT exam: Present: normal oropharynx Neck exam: Present: normal inspection, full ROM Respiratory exam: Present: normal lung sounds bilaterally. Absent: respiratory distress, wheezes, rales, rhonchi, stridor Cardiovascular Exam: Present: regular rate, normal rhythm, normal heart sounds. Absent: systolic murmur, diastolic murmur, rubs, gallop GI/Abdominal exam: Present: soft. Absent: distended, tenderness, guarding, rebound, rigid, mass Extremities exam: Present: normal inspection, normal capillary refill. Absent: pedal edema, calf tenderness Back exam: Present: normal inspection. Absent: CVA tenderness (R), CVA tendern ess (L) Neurological exam: Present: alert, oriented X3, CN II-XII intact. Absent: motor sensory deficit Skin exam: Present: warm, dry, intact, normal color. Absent: rash Course Vital Signs 09/29/20 09/29/20 02:31 03:30 Temperature 98.4 F Pulse Rate 69 65 Respiratory 18 18 Rate Blood Pressure 189/103 183/89 O2 Sat by Pulse 96 97 Oximetry EKG Findings - EKG Results: EKG: interpreted by ERMD, sinus rhythm (Rate 72 bpm), normal axis, normal QRS, normal ST/T - Blocks, [place], Hypertrophy, ST Abn: Chamber hypertrophy or enlargement: only voltage criteria for left ventricular hypertrophy Medical Decision Making - Lab Data Result diagrams: 09/29/20 02:52 09/29/20 02:52 Lab Results 09/29/20 09/29/20 09/29/20 Range/Units 02:52 02:52 02:52 WBC 8.5 (3.8-10.6) k/uL RBC 4.26 (3.80-5.40) m/uL Hgb 11.9 (11.4-16.0) gm/dL Hct 35.7 (34.0-46.0) % MCV 83.8 (80.0-100.0) fL MCH 27.9 (25.0-35.0) pg MCHC 33.3 (31.0-37.0) g/dL RDW 13.9 (11.5-15.5) % Plt Count 409 (150-450) k/uL MPV 7.7 Neutrophils % 58 % Lymphocytes % 29 % Monocytes % 5 % Eosinophils % 6 % Basophils % 1 % Neutrophils # 4.9 (1.3-7.7) k/uL Lymphocytes # 2.4 (1.0-4.8) k/uL Monocytes # 0.4 (0-1.0) k/uL Eosinophils # 0.5 (0-0.7) k/uL Basophils # 0.1 (0-0.2) k/uL Sodium 137 (137-145) mmol/L Potassium 4.4 (3.5-5.1) mmol/L Chloride 109 H (98-107) mmol/L Carbon Dioxide 22 (22-30) mmol/L Anion Gap 6 mmol/L BUN 29 H (7-17) mg/dL Creatinine 0.76 (0.52-1.04) mg/dL Est GFR (CKD-EPI)AfAm >90 (>60 ml/min/1.73 sqM) Est GFR (CKD-EPI)NonAf 80 (>60 ml/min/1.73 sqM) Glucose 115 H (74-99) mg/dL Calcium 8.9 (8.4-10.2) mg/dL Magnesium 1.8 (1.6-2.3) mg/dL Total Bilirubin 0.7 (0.2-1.3) mg/dL AST 37 H (14-36) U/L ALT 18 (4-34) U/L Alkaline Phosphatase 122 (38-126) U/L Troponin I <0.012 (0.000-0.034) ng/mL Total Protein 7.3 (6.3-8.2) g/dL Albumin 4.1 (3.5-5.0) g/dL Urine Color Urine Appearance (Clear) Urine pH (5.0-8.0) Ur Specific [place] (1.001-1.035) Urine Protein (Negative) Urine Glucose (UA) (Negative) Urine Ketones (Negative) Urine Blood (Negative) Urine Nitrite (Negative) Urine Bilirubin (Negative) Urine Urobilinogen (<2.0) mg/dL Ur Leukocyte Esterase (Negative) Urine RBC (0-5) /hpf Urine WBC (0-5) /hpf Urine Mucus (None) /hpf 09/29/20 Range/Units 03:07 WBC (3.8-10.6) k/uL RBC (3.80-5.40) m/uL Hgb (11.4-16.0) gm/dL Hct (34.0-46.0) % MCV (80.0-100.0) fL MCH (25.0-35.0) pg MCHC (31.0-37.0) g/dL RDW (11.5-15.5) % Plt Count (150-450) k/uL MPV Neutrophils % % Lymphocytes % % Monocytes % % Eosinophils % % Basophils % % Neutrophils # (1.3-7.7) k/uL Lymphocytes # (1.0-4.8) k/uL Monocytes # (0-1.0) k/uL Eosinophils # (0-0.7) k/uL Basophils # (0-0.2) k/uL Sodium (137-145) mmol/L Potassium (3.5-5.1) mmol/L Chloride (98-107) mmol/L Carbon Dioxide (22-30) mmol/L Anion Gap mmol/L BUN (7-17) mg/dL Creatinine (0.52-1.04) mg/dL Est GFR (CKD-EPI)AfAm (>60 ml/min/1.73 sqM) Est GFR (CKD-EPI)NonAf (>60 ml/min/1.73 sqM) Glucose (74-99) mg/dL Calcium (8.4-10.2) mg/dL Magnesium (1.6-2.3) mg/dL Total Bilirubin (0.2-1.3) mg/dL AST (14-36) U/L ALT (4-34) U/L Alkaline Phosphatase (38-126) U/L Troponin I (0.000-0.034) ng/mL Total Protein (6.3-8.2) g/dL Albumin (3.5-5.0) g/dL Urine Color Light Yellow Urine Appearance Clear (Clear) Urine pH 6.0 (5.0-8.0) Ur Specific [place] 1.012 (1.001-1.035) Urine Protein Negative (Negative) Urine Glucose (UA) Negative (Negative) Urine Ketones Negative (Negative) Urine Blood Negative (Negative) Urine Nitrite Negative (Negative) Urine Bilirubin Negative (Negative) Urine Urobilinogen <2.0 (<2.0) mg/dL Ur Leukocyte Esterase Small H (Negative) Urine RBC 2 (0-5) /hpf Urine WBC 4 (0-5) /hpf Urine Mucus Rare H (None) /hpf Disposition Clinical Impression: Hypertension Disposition: HOME SELF-CARE Condition: Good Instructions (If sedation given, give patient instructions): Hypertension (ED) Is patient prescribed a controlled substance at d/c from ED?: No Referrals: Jadon Romero DO [Primary Care Provider] - 1-2 days
[2020-09-29 03:00] LABS: Basophils # (A) 0.1 k/uL (0-0.2); Basophils % (A) 1 %; Eosinophils # (A) 0.5 k/uL (0-0.7); Eosinophils % (A) 6 %; HCT 35.7 % (34.0-46.0); HGB 11.9 gm/dL (11.4-16.0); Lymphocytes # (A) 2.4 k/uL (1.0-4.8); Lymphocytes % (A) 29 %; MCH 27.9 pg (25.0-35.0); MCHC 33.3 g/dL (31.0-37.0); MCV 83.8 fL (80.0-100.0); Mean Platelet Volume 7.7; Monocytes # (A) 0.4 k/uL (0-1.0); Monocytes % (A) 5 %; Neutrophils # (A) 4.9 k/uL (1.3-7.7); Neutrophils % (A) 58 %; Platelet Count 409 k/uL (150-450); RBC 4.26 m/uL (3.80-5.40); RDW 13.9 % (11.5-15.5); WBC 8.5 k/uL (3.8-10.6)
[2020-09-29 03:16] LABS: ALT 18 U/L (4-34); AST 37 U/L (14-36); African American GFR (CKD) >90 (>60 ml/min/1.73 sqM); Albumin 4.1 g/dL (3.5-5.0); Alkaline Phosphatase 122 U/L (38-126); Anion Gap 6 mmol/L; Blood Urea Nitrogen 29 mg/dL (7-17); Calcium 8.9 mg/dL (8.4-10.2); Carbon Dioxide 22 mmol/L (22-30); Chloride 109 mmol/L (98-107); Glucose 115 mg/dL (74-99); Magnesium 1.8 mg/dL (1.6-2.3); Non-African American GFR(CKD) 80 (>60 ml/min/1.73 sqM); Sodium 137 mmol/L (137-145); Total Bilirubin 0.7 mg/dL (0.2-1.3); Total Protein 7.3 g/dL (6.3-8.2)
[2020-09-29 03:20] LABS: Appearance,Urine Clear (Clear); Bilirubin,Urine Negative (Negative); Blood,Urine Negative (Negative); Color,Urine Light Yellow; Glucose,Urine (UA) Negative (Negative); Ketones,Urine Negative (Negative); Leukocyte Esterase,Urine Small (Negative); Mucus,Urine Rare /hpf; Nitrite,Urine Negative (Negative); Protein,Urine Negative (Negative); RBC,Urine 2 /hpf (0-5); Specific Gravity,Urine 1.012 (1.001-1.035); Urobilinogen,Urine <2.0 mg/dL (<2.0); WBC,Urine 4 /hpf (0-5)
[2020-09-29 03:20] LABS: Potassium 4.4 mmol/L (3.5-5.1)
[2020-09-29 04:36] VITALS: BP 135/78; PULSE 69
== END 2020-09-29 04:47 | disposition home or self-care (01) ==
LOC: EC 02:30
DX: I10 Essential (primary) hypertension (principal); Z79.82 Long term (current) use of aspirin; Z79.899 Other long term (current) drug therapy; Z88.0 Allergy status to penicillin; Z88.1 Allergy status to other antibiotic agents; Z98.1 Arthrodesis status
CPT/HCPCS: 36415; 80053; 81001; 83735; 84484; 85025; 93005; 99284

== ENCOUNTER 2021-02-22 08:20 | Emergency (ER) | payer MEDICARE, OTHER ==
[2021-02-22] MEDS ORDERED: SODIUM CHLORIDE 0.9% 500 ML 500 ML IV ONE (08:35)
[2021-02-22 08:37] VITALS: TEMP 97.4
[2021-02-22] MEDS ORDERED: hydrALAZINE HCL 20 MG/ML 1 ML VIAL IVP STA (08:52)
[2021-02-22 09:05] LABS: Basophils # (A) 0.1 k/uL (0-0.2); Basophils % (A) 1 %; Eosinophils # (A) 0.3 k/uL (0-0.7); Eosinophils % (A) 5 %; HCT 33.7 % (34.0-46.0); HGB 11.3 gm/dL (11.4-16.0); Lymphocytes # (A) 1.6 k/uL (1.0-4.8); Lymphocytes % (A) 27 %; MCH 29.1 pg (25.0-35.0); MCHC 33.4 g/dL (31.0-37.0); MCV 87.1 fL (80.0-100.0); Mean Platelet Volume 7.7; Monocytes # (A) 0.3 k/uL (0-1.0); Monocytes % (A) 4 %; Neutrophils # (A) 3.7 k/uL (1.3-7.7); Neutrophils % (A) 62 %; Platelet Count 393 k/uL (150-450); RBC 3.87 m/uL (3.80-5.40); RDW 14.2 % (11.5-15.5)
[2021-02-22 09:22] LABS: ALT 16 U/L (4-34); AST 25 U/L (14-36); African American GFR (CKD) >90 (>60 ml/min/1.73 sqM); Albumin 3.8 g/dL (3.5-5.0); Alkaline Phosphatase 83 U/L (38-126); Anion Gap 9 mmol/L; Blood Urea Nitrogen 19 mg/dL (7-17); Calcium 9.1 mg/dL (8.4-10.2); Carbon Dioxide 22 mmol/L (22-30); Chloride 109 mmol/L (98-107); Glucose 144 mg/dL (74-99); Non-African American GFR(CKD) 88 (>60 ml/min/1.73 sqM); Potassium 3.8 mmol/L (3.5-5.1); Sodium 140 mmol/L (137-145); Total Bilirubin 0.4 mg/dL (0.2-1.3); Total Protein 6.4 g/dL (6.3-8.2)
--- NOTE | 2021-02-22 09:37 | ED ---
General Adult HPI - General Chief complaint: Recheck/Abnormal Lab/Rx Stated complaint: hypertension Time Seen by Provider: 02/22/21 08:23 Source: patient, EMS, RN notes reviewed Mode of arrival: EMS Limitations: no limitations - History of Present Illness Initial comments: 70-year-old female presents emergency Department chief complaint of high blood pressure. Patient states that she just felt off this morning so she decided check her blood pressure and which was elevated 200/100. Patient denies any chest pain shortness of breath headache or dizziness. She states that she feels much better at this time though her blood pressure still mildly elevated she did take your medications approximately an hour prior arrival. - Related Data Home Medications Medication Instructions Recorded Confirmed Losartan Potassium 100 mg PO DAILY 02/22/21 02/22/21 Metoprolol Tartrate [Lopressor] 25 mg PO DAILY 02/22/21 02/22/21 Previous Rx's Medication Instructions Recorded Nitrofurantoin Monohyd/M-Cryst 100 mg PO Q12HR #10 cap 02/22/21 [Macrobid] Allergies Allergy/AdvReac Type Severity Reaction Status Date / Time amoxicillin [From Augmentin] AdvReac Diarrhea Verified 02/22/21 09:53 clavulanic acid AdvReac Diarrhea Verified 02/22/21 09:53 [From Augmentin] Review of Systems ROS Statement: Those systems with pertinent positive or pertinent negative responses have been documented in the HPI. ROS Other: All systems not noted in ROS Statement are negative. Past Medical History Past Medical History: Hypertension, Osteoarthritis (OA) History of Any Multi-Drug Resistant Organisms: None Reported Past Surgical History: Hysterectomy Additional Past Surgical History / Comment(s): cervical fusion Past Anesthesia/Blood Transfusion Reactions: No Reported Reaction Past Psychological History: No Psychological Hx Reported Smoking Status: Never smoker Past Alcohol Use History: None Reported Past Drug Use History: None Reported - Past Family History Mother Family Medical History: No Reported History General Exam Limitations: no limitations General appearance: alert, in no apparent distress Head exam: Present: atraumatic, normocephalic, normal inspection Eye exam: Present: normal appearance, PERRL, EOMI. Absent: scleral icterus, conjunctival injection, periorbital swelling ENT exam: Present: normal exam, normal oropharynx, mucous membranes moist Neck exam: Present: normal inspection, full ROM. Absent: tenderness, meningismus, lymphadenopathy Respiratory exam: Present: normal lung sounds bilaterally. Absent: respiratory distress, wheezes, rales, rhonchi, stridor Cardiovascular Exam: Present: regular rate, normal rhythm, normal heart sounds. Absent: systolic murmur, diastolic murmur, rubs, gallop, clicks Neurological exam: Present: alert, oriented X3, CN II-XII intact Skin exam: Present: warm, dry, intact, normal color. Absent: rash Course Vital Signs 02/22/21 02/22/21 02/22/21 08:22 08:50 08:51 Temperature 97.4 F L Pulse Rate 64 Respiratory 18 Rate Blood Pressure 197/88 194/86 194/86 O2 Sat by Pulse 100 Oximetry 02/22/21 02/22/21 02/22/21 09:00 09:10 09:20 Temperature Pulse Rate Respiratory Rate Blood Pressure 194/86 179/86 179/86 O2 Sat by Pulse Oximetry 02/22/21 02/22/21 02/22/21 09:30 09:40 09:50 Temperature Pulse Rate 65 Respiratory 14 Rate Blood Pressure 179/86 140/64 140/64 O2 Sat by Pulse Oximetry 02/22/21 10:00 Temperature Pulse Rate Respiratory Rate Blood Pressure 171/83 O2 Sat by Pulse Oximetry Medical Decision Making - Medical Decision Making 70-year-old female presented for generalized not feeling well prior arrival though she felt better upon arrival. Workup was negative then she has a mild UTI. Patient was given dose of Rocephin will be cultured and discharged on Macrobid return parameters discussed - Lab Data Result diagrams: 02/22/21 08:49 02/22/21 08:49 Lab Results 02/22/21 02/22/21 02/22/21 Range/Units 08:49 08:49 08:49 WBC 6.0 (3.8-10.6) k/uL RBC 3.87 (3.80-5.40) m/uL Hgb 11.3 L (11.4-16.0) gm/dL Hct 33.7 L (34.0-46.0) % MCV 87.1 (80.0-100.0) fL MCH 29.1 (25.0-35.0) pg MCHC 33.4 (31.0-37.0) g/dL RDW 14.2 (11.5-15.5) % Plt Count 393 (150-450) k/uL MPV 7.7 Neutrophils % 62 % Lymphocytes % 27 % Monocytes % 4 % Eosinophils % 5 % Basophils % 1 % Neutrophils # 3.7 (1.3-7.7) k/uL Lymphocytes # 1.6 (1.0-4.8) k/uL Monocytes # 0.3 (0-1.0) k/uL Eosinophils # 0.3 (0-0.7) k/uL Basophils # 0.1 (0-0.2) k/uL Sodium 140 (137-145) mmol/L Potassium 3.8 (3.5-5.1) mmol/L Chloride 109 H (98-107) mmol/L Carbon Dioxide 22 (22-30) mmol/L Anion Gap 9 mmol/L BUN 19 H (7-17) mg/dL Creatinine 0.69 (0.52-1.04) mg/dL Est GFR (CKD-EPI)AfAm >90 (>60 ml/min/1.73 sqM) Est GFR (CKD-EPI)NonAf 88 (>60 ml/min/1.73 sqM) Glucose 144 H (74-99) mg/dL Calcium 9.1 (8.4-10.2) mg/dL Total Bilirubin 0.4 (0.2-1.3) mg/dL AST 25 (14-36) U/L ALT 16 (4-34) U/L Alkaline Phosphatase 83 (38-126) U/L Total Protein 6.4 (6.3-8.2) g/dL Albumin 3.8 (3.5-5.0) g/dL Urine Color Light Yellow Urine Appearance Clear (Clear) Urine pH 6.0 (5.0-8.0) Ur Specific [place] 1.012 (1.001-1.035) Urine Protein Negative (Negative) Urine Glucose (UA) Negative (Negative) Urine Ketones Negative (Negative) Urine Blood Negative (Negative) Urine Nitrite Negative (Negative) Urine Bilirubin Negative (Negative) Urine Urobilinogen <2.0 (<2.0) mg/dL Ur Leukocyte Esterase Large H (Negative) Urine RBC 1 (0-5) /hpf Urine WBC 11 H (0-5) /hpf Ur Squamous Epith Cells <1 (0-4) /hpf Urine Mucus Rare H (None) /hpf Disposition Clinical Impression: Hypertension, UTI (urinary tract infection) Disposition: HOME SELF-CARE Condition: Stable Instructions (If sedation given, give patient instructions): Urinary Tract Infection in Women (ED) Additional Instructions: Please return to the Emergency Department if symptoms worsen or any other concerns. Prescriptions: Nitrofurantoin Monohyd/M-Cryst [Macrobid] 100 mg PO Q12HR #10 cap Is patient prescribed a controlled substance at d/c from ED?: No Referrals: Jadon Romero DO [Primary Care Provider] - 1-2 days Time of Disposition: 10:10
[2021-02-22 09:51] LABS: Appearance,Urine Clear (Clear); Bilirubin,Urine Negative (Negative); Blood,Urine Negative (Negative); Color,Urine Light Yellow; Glucose,Urine (UA) Negative (Negative); Ketones,Urine Negative (Negative); Leukocyte Esterase,Urine Large (Negative); Mucus,Urine Rare /hpf; Nitrite,Urine Negative (Negative); Protein,Urine Negative (Negative); RBC,Urine 1 /hpf (0-5); Specific Gravity,Urine 1.012 (1.001-1.035); Squamous Epithelial Cell,Urine <1 /hpf (0-4); Urobilinogen,Urine <2.0 mg/dL (<2.0); WBC,Urine 11 /hpf (0-5)
[2021-02-22] MEDS ORDERED: cefTRIAXone IN SWFI 1,000 MG/10 ML SYRINGE IVP STA (10:08)
[2021-02-22 10:14] VITALS: BP 137/64; PULSE 66; RESP 18
== END 2021-02-22 11:03 | disposition home or self-care (01) ==
LOC: EC 08:20
DX: I10 Essential (primary) hypertension (principal); N39.0 Urinary tract infection, site not specified; M19.90 Unspecified osteoarthritis, unspecified site; Z88.1 Allergy status to other antibiotic agents; Z90.710 Acquired absence of both cervix and uterus
CPT/HCPCS: 99284; 96374; 96375; 36415; 93005; 80053; 85025; 81001; 87086; J0360; J0696

== ENCOUNTER 2021-04-22 15:53 | Emergency (ER) | payer MEDICARE, OTHER ==
[2021-04-22 16:02] VITALS: RESP 18; TEMP 98.4
--- NOTE | 2021-04-22 16:58 | XR ---
EXAMINATION TYPE: XR chest 2V DATE OF EXAM: 04/22/2021 COMPARISON: 07/30/2019 HISTORY: Cough TECHNIQUE: 2 views FINDINGS: Heart and mediastinum are normal. Lungs are clear of infiltrate. There is sharply marginate d rounded 7 mm nodule over the left upper lobe there is probably a granuloma. This is probably not ch anged compared to old chest x-ray of 11/23/2012. There are chest leads. Costophrenic angles are clear. Bony thorax is intact. IMPRESSION: No active cardiopulmonary disease.. No adverse change.
[2021-04-22] MEDS ORDERED: AZITHROMYCIN 500 MG TAB PO STA (17:57)
[2021-04-22] MEDS ORDERED: predniSONE 50 MG TAB PO STA (17:57)
[2021-04-22] MEDS ORDERED: ALBUTEROL HFA INHALER INHALATION STA (17:57)
--- NOTE | 2021-04-22 18:00 | ED ---
General Adult HPI - General Chief complaint: Shortness of Breath Stated complaint: SOB, sore throat [id number] Time Seen by Provider: 04/22/21 16:13 Source: patient, RN notes reviewed, old records reviewed Mode of arrival: ambulatory Limitations: no limitations - History of Present Illness Initial comments: I evaluated the patient when she was placed in a room. Patient is a 70-year-old female with no significant past medical history presents emergency Department complaining of a two-week history of cough. Patient endorses a mildly productive cough of a whitish mucus over the last 2 weeks. She was started on prednisone by her PCP but she states the cough is persistent. She denies any fevers, sick contacts. She states she was vaccinated for COVID-19. Denies any abdominal pain, nausea, vomiting. Denies any diarrhea. Denies any lightheadedness, weakness. Negative smoking history. No history of COPD or asthma. Patient presents over concern for her persistent cough. She did not receive antibodies previously. Denies any sore throat, ear complaints, sinus tenderness. - Related Data Home Medications Medication Instructions Recorded Confirmed Losartan Potassium 100 mg PO DAILY 02/22/21 04/22/21 Metoprolol Tartrate [Lopressor] 25 mg PO DAILY 02/22/21 04/22/21 Previous Rx's Medication Instructions Recorded Albuterol Sulfate [Albuterol 1 puff PO Q4-6H #8.5 gm 04/22/21 Sulfate Hfa] Azithromycin [Zithromax] 250 mg PO DAILY 5 Days #5 tab 04/22/21 predniSONE [Deltasone] 40 mg PO DAILY 5 Days #10 tab 04/22/21 Allergies Allergy/AdvReac Type Severity Reaction Status Date / Time amoxicillin [From Augmentin] AdvReac Diarrhea Verified 04/22/21 16:41 clavulanic acid AdvReac Diarrhea Verified 04/22/21 16:41 [From Augmentin] Review of Systems ROS Statement: Those systems with pertinent positive or pertinent negative responses have been documented in the HPI. Review of Systems: CONST: Denies fever EYES: Denies blurry vision ENT: Endorses rhinorrhea C/V: Denies Chest pain RESP: Endorses cough GI: Denies abdominal pain : Denies dysuria SKIN: Denies rash. MSK: Denies joint pain. NEURO: Denies headache ROS Other: All systems not noted in ROS Statement are negative. Past Medical History Past Medical History: Hypertension, Osteoarthritis (OA) History of Any Multi-Drug Resistant Organisms: None Reported Past Surgical History: Hysterectomy Additional Past Surgical History / Comment(s): cervical fusion Past Anesthesia/Blood Transfusion Reactions: No Reported Reaction Past Psychological History: No Psychological Hx Reported Smoking Status: Never smoker Past Alcohol Use History: None Reported Past Drug Use History: None Reported - Past Family History Mother Family Medical History: No Reported History General Exam - General Exam Comments Initial Comments: General: Appears in no acute distress. HEAD: Normal with no signs of head trauma. EYES: PERRLA, EOMI, conjunctiva normal, no discharge. ENT: Hearing grossly intact, normal oropharynx. Small amount of rhinorrhea. Tympanic membranes are unremarkable and within normal limits. No lymphadenopathy. No sinus tenderness to palpation. RESPIRATORY: Mild wheezing and coarse breath sounds mostly centrally. No rhonchi appreciated. No tachypnea. No hypoxia. C/V: Regular rate and rhythm. S1 and S2 auscultated, no edema, peripheral pulses 2+ and intact throughout ABD: Abd is soft, nontender, nondistended EXT: Normal range of motion, no obvious deformity SKIN: No rashes or lesions observed on exposed skin. NEURO: Alert and oriented 4. Limitations: no limitations Course Vital Signs 04/22/21 04/22/21 15:59 18:10 Temperature 98.4 F Pulse Rate 96 80 Respiratory 18 18 Rate Blood Pressure 159/79 121/63 O2 Sat by Pulse 98 97 Oximetry Medical Decision Making - Medical Decision Making Based on the patient's presentation and physical exam, I'm concerned for upper respiratory illness with the patient. Differential includes pneumonia versus COVID-19 versus bronchitis. I discussed with her that I would like to obtain a chest x-ray as well as 19 swab. She was in agreement this plan. I do not believe that she presently additional laboratory studies or imaging at this time. Patient is Covid negative. Chest x-ray shows no acute cardio pulmonary process. There is an old granuloma seen on prior chest x-rays. Screening EKG was obtained in triage and showed no signs of acute ischemic changes. On reevaluation, patient remains unchanged. I discussed with her the results of her imaging and COVID-19 swab. I splint she is likely expressing bronchitis. She will be given azithromycin, prednisone, albuterol inhaler. I instructed her follow up with her PCP in the next few days. She was in agreement this plan. I will provide the patient with a prescription for albuterol inhaler, prednisone 40 mg for 5 days, azithromycin 250 mg for 5 days. I instructed the patient to follow up with their PCP in the next 3 days. I explained that the patient should return to the emergency department if they experience any worsening symptoms. Strict return precautions were discussed with the patient. The patient expressed understanding of these instructions. I answered all questions that the patient had. The patient was discharged home in fair condition with their prescriptions and follow up information. - Lab Data Lab Results 04/22/21 Range/Units 16:18 Coronavirus (PCR) Not Detected (Not Detectd) - EKG Data -: EKG Interpreted by Me EKG Comments: 12-lead Electrocardiogram Interpretation Note EKG was reviewed and interpreted by myself. 12-lead ECG performed at 1616 is interpreted by me as revealing normal sinus rhythm at a rate of 85 beats per minute. [place] is normal. IN interval is 164 ms, QRS duration is 80 ms, QTc is 442 ms.. There were no ST or T wave abnormalities to suggest myocardial ischemia or injury. R-wave progression across the precordium was somewhat delayed.. By my interpretation this EKG is non-diagnostic for acute ischemia. Disposition Clinical Impression: Bronchitis, Cough Disposition: HOME SELF-CARE Condition: Fair Instructions (If sedation given, give patient instructions): Acute Bronchitis (ED) Prescriptions: Albuterol Sulfate [Albuterol Sulfate Hfa] 1 puff PO Q4-6H #8.5 gm predniSONE [Deltasone] 40 mg PO DAILY 5 Days #10 tab Azithromycin [Zithromax] 250 mg PO DAILY 5 Days #5 tab Is patient prescribed a controlled substance at d/c from ED?: No Referrals: Jadon Romero DO [Primary Care Provider] - 1-2 days
[2021-04-22 18:11] VITALS: BP 121/63; PULSE 80
== END 2021-04-22 18:17 | disposition home or self-care (01) ==
LOC: EC 15:53
DX: J40 Bronchitis, not specified as acute or chronic (principal); I10 Essential (primary) hypertension; M19.90 Unspecified osteoarthritis, unspecified site; Z79.899 Other long term (current) drug therapy
CPT/HCPCS: 99284; 94640; 93005; 87635; 71046; J7512

== ENCOUNTER → 2021-07-28 | Outpatient (CLI) | payer MEDICARE, OTHER ==
--- NOTE | 2021-07-29 12:10 | MM ---
Reason for exam: screening (asymptomatic). Last mammogram was performed 2 years and 4 months ago. History: Patient is postmenopausal and is nulliparous. Family history of breast cancer in cousin. Took estrogen for 7 years. Physical Findings: A clinical breast exam by your physician is recommended on an annual basis and results should be correlated with mammographic findings. MG 3D Screening Mammo W/Cad Bilateral CC and MLO view(s) were taken. Prior study comparison: March 14, 2019, bilateral MG 3d screening mammo w/cad. March 06, 2018, bilateral MG 3d screening mammo w/cad. The breast tissue is heterogeneously dense. This may lower the sensitivity of mammography. There are benign appearing round vascular calcifications bilaterally. There is no discrete abnormality. ASSESSMENT: Benign, BI-RAD 2 RECOMMENDATION: Routine screening mammogram of both breasts in 1 year.
== END | disposition home or self-care (01) ==
LOC: RADMAMWWP 13:09
PROVIDERS: ATTEND Family Medicine
DX: Z12.31 Encounter for screening mammogram for malignant neoplasm of breast (principal); Z78.0 Asymptomatic menopausal state; Z80.3 Family history of malignant neoplasm of breast
CPT/HCPCS: 77063; 77067

== ENCOUNTER → 2021-10-06 | Outpatient (CLI) | payer MEDICARE, OTHER ==
--- NOTE | 2021-10-07 09:11 | US ---
EXAMINATION TYPE: US carotid duplex BILAT DATE OF EXAM: 10/06/2021 COMPARISON: NONE CLINICAL HISTORY: I65.29. EXAM MEASUREMENTS: RIGHT: Peak Systolic Velocity (PSV) cm/sec ----- Right CCA: 56.1 ----- Right ICA: 76.0 ----- Right ECA: 80.9 ICA/CCA ratio: 1.35 RIGHT: End Diastole cm/sec ----- Right CCA: 9.6 ----- Right ICA: 24.0 ----- Right ECA: 0.0 LEFT: Peak Systolic Velocity (PSV) cm/sec ----- Left CCA: 60.5 ----- Left ICA: 95.7 ----- Left ECA: 61.4 ICA/CCA ratio: 1.58 LEFT: End Diastole cm/sec ----- Left CCA: 14.1 ----- Left ICA: 29.6 ----- Left ECA: 1.0 VERTEBRALS (direction of flow): Right Vertebral: Antegrade Left Vertebral: Antegrade Rhythm: Normal Mild atherosclerotic changes with no significant velocity increases seen bilaterally, calcified plaqu e noted at the carotid bulb on the left. Grayscale, color Doppler, spectral Doppler imaging performe d the carotid arteries. Waveform analysis does not show significant stenosis of the internal carotid arteries. IMPRESSION: No hemodynamic significant stenosis of the proximal internal carotid arteries by Doppler criteria, an indirect measurement of carotid stenosis Criteria for Assigning % of Stenosis / Diameter reduction (Estimation based on the indirect measurements of the internal carotid artery velocities (ICA PSV). 1. Normal (no stenosis)=ICA PSV < 125 cm/s: ratio < 2.0: ICA EDV<40 cm/s. 2. Less than 50% stenosis=ICA PSV < 125 cm/s: ratio < 2.0: ICA EDV<40 cm/s. 3. 50 to 69% stenosis=ICA PSV of 125 to 230 cm/s: ration 2.0 ? 4.0: ICA EDV 40-100 cm/s. 4. Greater than 70% stenosis to near occlusion= ICA PSV > 230 cm/s: ratio > 4.0: ICA EDV > 100 cm/s. 5. Near occlusion= ICA PSV velocities may be low or undetectable: variable ratio and ICA EDV. 6. Total occlusion=unable to detect flow.
== END | disposition home or self-care (01) ==
LOC: RADUSWWP 15:21
PROVIDERS: ATTEND Family Medicine
DX: I65.29 Occlusion and stenosis of unspecified carotid artery (principal)
CPT/HCPCS: 93880

== ENCOUNTER 2022-07-11 00:49 | Observation (INO) | payer MEDICARE ==
--- NOTE | 2022-07-11 00:57 | ED ---
Chest Pain HPI - General Chief Complaint: Chest Pain Stated Complaint: Chest Pain Time Seen by Provider: 07/11/22 00:56 Source: patient, RN notes reviewed, old records reviewed Mode of arrival: EMS Limitations: no limitations - Related Data Home Medications Medication Instructions Recorded Confirmed Losartan Potassium 100 mg PO DAILY 02/22/21 04/22/21 Metoprolol Tartrate [Lopressor] 25 mg PO DAILY 02/22/21 04/22/21 Previous Rx's Medication Instructions Recorded Albuterol Sulfate [Albuterol 1 puff PO Q4-6H #8.5 gm 04/22/21 Sulfate Hfa] Azithromycin [Zithromax] 250 mg PO DAILY 5 Days #5 tab 04/22/21 predniSONE [Deltasone] 40 mg PO DAILY 5 Days #10 tab 04/22/21 Allergies Allergy/AdvReac Type Severity Reaction Status Date / Time amoxicillin [From Augmentin] AdvReac Diarrhea Verified 07/11/22 00:57 clavulanic acid AdvReac Diarrhea Verified 07/11/22 00:57 [From Augmentin] Review of Systems ROS Statement: Those systems with pertinent positive or pertinent negative responses have been documented in the HPI. ROS Other: All systems not noted in ROS Statement are negative. EKG Findings - EKG Comments: EKG Findings:: EKG interpreted by me tachycardia 102 UT 180 QRS 89 QTC 393 Past Medical History Past Medical History: Hypertension, Osteoarthritis (OA) History of Any Multi-Drug Resistant Organisms: None Reported Past Surgical History: Hysterectomy Additional Past Surgical History / Comment(s): cervical fusion Past Anesthesia/Blood Transfusion Reactions: No Reported Reaction Past Psychological History: No Psychological Hx Reported Smoking Status: Never smoker Past Alcohol Use History: None Reported Past Drug Use History: None Reported - Past Family History Mother Family Medical History: No Reported History General Exam Limitations: no limitations Course Vital Signs 07/11/22 00:51 Temperature 97.7 F Pulse Rate 103 H Respiratory 18 Rate Blood Pressure 196/97 O2 Sat by Pulse 96 Oximetry Disposition Clinical Impression: Chest pain Disposition: ADMITTED IP TO THIS HOSP Condition: Fair Instructions (If sedation given, give patient instructions): Chest Pain (ED) Is patient prescribed a controlled substance at d/c from ED?: No Referrals: Jadon Romero DO [Primary Care Provider] - 1-2 days Time of Disposition: 02:00
--- NOTE | 2022-07-11 01:18 | XR ---
EXAMINATION TYPE: XR chest 2V DATE OF EXAM: 07/11/2022 COMPARISON: 04/22/2021 HISTORY: Chest pain TECHNIQUE: FINDINGS: There is no heart failure nor confluent pneumonic infiltrate. Costophrenic angles are clear . There are chest leads. Bony thorax is intact IMPRESSION: No active cardiopulmonary disease. Normal heart. No change.
[2022-07-11 01:29] LABS: Basophils # (A) 0.1 k/uL (0-0.2); Basophils % (A) 1 %; Eosinophils # (A) 0.5 k/uL (0-0.7); Eosinophils % (A) 6 %; HCT 36.7 % (34.0-46.0); HGB 12.3 gm/dL (11.4-16.0); Lymphocytes # (A) 2.2 k/uL (1.0-4.8); Lymphocytes % (A) 23 %; MCH 28.4 pg (25.0-35.0); MCHC 33.6 g/dL (31.0-37.0); MCV 84.5 fL (80.0-100.0); Mean Platelet Volume 7.7; Monocytes # (A) 0.4 k/uL (0-1.0); Monocytes % (A) 4 %; Neutrophils # (A) 6.2 k/uL (1.3-7.7); Neutrophils % (A) 65 %; Platelet Count 405 k/uL (150-450); RBC 4.35 m/uL (3.80-5.40); RDW 13.3 % (11.5-15.5); WBC 9.4 k/uL (3.8-10.6)
[2022-07-11 01:39] LABS: INR 0.9 (<1.2); Partial Thromboplastin Time 23.9 sec (22.0-30.0); Prothrombin Time 9.8 sec (9.0-12.0)
[2022-07-11 01:40] LABS: ALT 20 U/L (4-34); AST 22 U/L (14-36); African American GFR (CKD) >90 (>60 ml/min/1.73 sqM); Albumin 4.3 g/dL (3.5-5.0); Alkaline Phosphatase 144 U/L (38-126); Anion Gap 10 mmol/L; Blood Urea Nitrogen 33 mg/dL (7-17); Calcium 9.5 mg/dL (8.4-10.2); Carbon Dioxide 26 mmol/L (22-30); Chloride 106 mmol/L (98-107); Glucose 140 mg/dL (74-99); Lipase 176 U/L (23-300); Magnesium 1.8 mg/dL (1.6-2.3); Non-African American GFR(CKD) 83 (>60 ml/min/1.73 sqM); Sodium 142 mmol/L (137-145); Total Bilirubin 0.2 mg/dL (0.2-1.3); Total Protein 7.5 g/dL (6.3-8.2)
[2022-07-11] MEDS ORDERED: MORPHINE SULFATE 4 MG/ML SYRINGE IV PRN (01:53)
[2022-07-11] MEDS ORDERED: ONDANSETRON 4 MG/2 ML VIAL IVP PRN (01:53)
[2022-07-11] MEDS ORDERED: NALOXONE 0.4 MG/ML 1 ML VIAL IV PRN (01:53)
[2022-07-11] MEDS ORDERED: ASPIRIN 81 MG PO STA (01:54)
[2022-07-11] MEDS ORDERED: SODIUM CHLORIDE 0.9% 1,000 ML IV SCH (02:00)
[2022-07-11 02:56] VITALS: RESP 16
[2022-07-11] MEDS ORDERED: ATORVASTATIN 80 MG TAB PO SCH (04:05)
--- NOTE | 2022-07-11 04:05 | P.HPIM ---
History of Present Illness H&P Date: 07/11/22 The patient is a 71-year-old female with a PMH of hypertension who presented to the emergency room accompanied by her son for complaints of chest discomfort. The patient reports that her recently 2 months ago and she has since been under a lot of stress as she misses him immensely. She reports that over the past 3-4 weeks, she has been experiencing evening time substernal and left-sided chest discomfort, occurring once every few days, heavy in nature, constant, 5 out of 10 on maximal intensity, nonpleuritic, with no alleviating or exacerbating features, and radiating to the left arm. The pain normally resolves after she goes to sleep and wakes up in the morning. She reported no pain at the time of interview. She also reports associated headaches. Denied experiencing shortness of breath, nausea, vomiting, diaphoresis. Reports occasional lightheadedness which is positional, without syncope. Denied any prior history of coronary artery disease or family history of premature coronary artery disease. Reports that her blood pressure has not been well controlled due to her inordinate amount of stress recently. The case was discussed in detail with the ED provider. EKG the emergency room revealed sinus tachycardia at 102 bpm with poor R-wave progression and T-wave inversion in lead III. Chest x-ray in the emergency room was unremarkable. The patient's blood pressure was elevated upon presentation to 196 or 97 with pulse 103 and SpO2 96% on room air. Laboratory evaluation was remarkable for glucose of 140 and alkaline phosphatase 144 with troponin less than 0.012. Review of systems: Pertinent positives and negatives as discussed in HPI, a complete review of systems was performed and all other systems are negative. Physical examination: General: non toxic, no distress, appears at stated age, obese Derm: no unusual rashes/lesions, warm Head: atraumatic, normocephalic, symmetric Eyes: EOMI, no lid lag, anicteric sclera, pupils equal round reactive to light ENT: Nose and ears atraumatic Neck: No cervical lymphadenopathy, trachea midline, supple Mouth: no lip lesion, mucus membranes moist Cardiovascular: S1S2 reg, no murmur, positive dorsalis pedis pulse bilateral, no edema Lungs: CTA bilateral, no rhonchi, no rales, no accessory muscle use Abdominal: soft, nontender to palpation, no guarding Ext: muscle strength 5 out of 5 in all 4 extremities grossly, no gross muscle atrophy, no contractures, Neuro: CN II-XI grossly intact, no gross focal neuro deficits Psych: Alert, oriented, appropriate affect Assessment/plan Chest pain with atypical features, rule out ACS -Cardiology consult -Trend troponin -Cardiac monitoring -Continue with aspirin, statin -Check A1c and lipid panel HTN, uncontrolled -Continued home antihypertensives at this time DVT prophylaxis -Heparin subq The patient is admitted with an anticipated less than 2 midnight stay for evaluation of chest pain CODE STATUS: Full Code Discussed with: Patient, son Anticipated discharge date: in am Anticipated discharge place: Home Past Medical History Past Medical History: Hypertension, Osteoarthritis (OA) History of Any Multi-Drug Resistant Organisms: None Reported Past Surgical History: Hysterectomy Additional Past Surgical History / Comment(s): cervical fusion Past Anesthesia/Blood Transfusion Reactions: No Reported Reaction Past Psychological History: No Psychological Hx Reported Smoking Status: Former smoker Past Alcohol Use History: None Reported Past Drug Use History: None Reported - Past Family History Mother Family Medical History: Hypertension Medications and Allergies Home Medications Medication Instructions Recorded Confirmed Type Losartan Potassium 100 mg PO DAILY 02/22/21 04/22/21 History Metoprolol Tartrate [Lopressor] 25 mg PO DAILY 02/22/21 04/22/21 History Albuterol Sulfate [Albuterol 1 puff PO Q4-6H #8.5 gm 04/22/21 Rx Sulfate Hfa] Azithromycin [Zithromax] 250 mg PO DAILY 5 Days #5 tab 04/22/21 Rx predniSONE [Deltasone] 40 mg PO DAILY 5 Days #10 tab 04/22/21 Rx Allergies Allergy/AdvReac Type Severity Reaction Status Date / Time amoxicillin [From Augmentin] AdvReac Diarrhea Verified 07/11/22 00:57 clavulanic acid AdvReac Diarrhea Verified 07/11/22 00:57 [From Augmentin] Physical Exam Vitals: Vital Signs Temp Pulse Pulse Resp BP BP Pulse Ox 07/11/22 02:59 80 16 07/11/22 02:55 97.7 F 80 16 174/82 97 07/11/22 00:51 97.7 F 103 H 18 196/97 96 Intake and Output 07/10/22 07/10/22 07/11/22 14:59 22:59 06:59 Other: Voiding Method Toilet Weight 74.843 kg Results CBC & Chem 7: 07/11/22 00:57 07/11/22 00:57 Labs: Abnormal Lab Results - Last 24 Hours (Table) 07/11/22 Range/Units 00:57 BUN 33 H (7-17) mg/dL Glucose 140 H (74-99) mg/dL Alkaline Phosphatase 144 H (38-126) U/L Thrombosis Risk Factor Assmnt - Choose All That Apply Each Factor Represents 1 point: Obesity (BMI >25) Each Risk Factor Represents 2 Points: Age 61-74 years Thrombosis Risk Factor Assessment Total Risk Factor Score: 3 Thrombosis Risk Factor Assessment Level: Moderate Risk
[2022-07-11] MEDS ORDERED: HEPARIN SODIUM,PORCINE/PF 5,000 UNIT/0.5 ML SYRINGE SQ SCH (08:00)
[2022-07-11 08:47] LABS: Chol/HDL Ratio 3.82 Ratio; LDL Cholesterol,Calculated 127.6 mg/dL (0.0-131.0)
[2022-07-11] MEDS ORDERED: LOSARTAN 50 MG TAB PO SCH (09:00)
[2022-07-11] MEDS ORDERED: METOPROLOL TARTRATE 25 MG TAB PO SCH (09:00)
[2022-07-11] MEDS ORDERED: amLODIPine 10 MG TAB PO SCH (09:00)
[2022-07-11] MEDS ORDERED: amLODIPine 5 MG TAB PO SCH (09:00)
[2022-07-11 09:05] VITALS: BP 152/76; PULSE 75; TEMP 97.8
--- NOTE | 2022-07-11 09:28 | P.CRDCN ---
History of Present Illness History of present illness: HISTORY OF PRESENT ILLNESS: This is a 71 year old female with a past medical history significant for hypertension and hyperlipidemia. Patient follows in the office with Dr. Rodriguez. We have been asked to see the patient in consultation for chest pain. Patient examined at the bedside. Patient states she has been having chest pain for the past few weeks. She states the pain is in the left side of her chest and shoulder. She states the pain has been intermittent. She has been taking ibuprofen which she states has been helping. She report the pain is usually the worst in the afternoon. It is nonexertional. She reports she is under a lot of stress as her two months ago. She saw Dr. Rodriguez in May and Norvasc was added to her medication regimen for hypertension. She is also scheduled for an outpatient stress test in August. * EKG reveals sinus mechanism with no signs of acute ischemia * Chest xray negative for acute process * Laboratory data: WBC 9.4. Hemoglobin 12.3. Platelet count 405. Sodium 142. Potassium 4.0. B UN 33. Creatinine 0.73. Troponin negative 3. ProBNP 38. * Current home cardiac medications include aspirin 81 mg daily, Norvasc 5 mg daily, metoprolol tartrate 25 mg daily, losartan 100 mg daily * Most recent echocardiogram obtained in July 2020 revealed ejection fraction 55% with moderate aortic regurgitation * Patient underwent stress test in July 2020 which was negative for ischemia REVIEW OF SYSTEMS: At the time of my exam: CONSTITUTIONAL: Denies fever or chills. HEENT: Denies blurred vision, vision changes, or eye pain. Denies hemoptysis CARDIOVASCULAR: Denies chest pain. Denies orthopnea. Denies PND. Denies palpitations RESPIRATORY: Denies shortness of breath. GASTROINTESTINAL: Denies abdominal pain. Denies nausea or vomiting. HEMATOLOGIC: Denies bleeding disorders. GENITOURINARY: Denies any blood in urine. SKIN: Denies pruitis. Denies rash. PHYSICAL EXAM: VITAL SIGNS: Reviewed. GENERAL: Well-developed in no acute distress. HEENT: Head is normocephalic. Pupils are equal, round. Sclerae anicteric. Mucous membranes of the mouth are moist. Neck supple. No JVD or thyromegaly LUNGS: Respirations even and unlabored. Lungs essentially clear to auscultation bilaterally. HEART: Regular rate and rhythm. S1 and S2 heard. ABDOMEN: Soft. Nondistended. Nontender. EXTREMITIES: Normal range of motion. No clubbing or cyanosis. Peripheral pulses intact. No lower extremity edema NEUROLOGIC: Awake and alert. Oriented x 3. ASSESSMENT: Chest pain, troponin negative x 3 Hypertension, uncontrolled Hyperlipidemia PLAN: An acute coronary event has been ruled out Obtain 2D echo to assess cardiac structure and function Resume home cardiac medications Increase amlodipine to 10 mg daily Continue to monitor blood pressure Patient to undergo stress echocardiogram today Further recommendations pending patient course Nurse practitioner note has been reviewed by physician. Signing provider agrees with the documented findings, assessment, and plan of care. Past Medical History Past Medical History: Hypertension, Osteoarthritis (OA) History of Any Multi-Drug Resistant Organisms: None Reported Past Surgical History: Hysterectomy Additional Past Surgical History / Comment(s): cervical fusion Past Anesthesia/Blood Transfusion Reactions: No Reported Reaction Past Psychological History: No Psychological Hx Reported Smoking Status: Former smoker Past Alcohol Use History: None Reported Past Drug Use History: None Reported - Past Family History Mother Family Medical History: Hypertension Medications and Allergies Home Medications Medication Instructions Recorded Confirmed Type Losartan Potassium 100 mg PO DAILY 02/22/21 04/22/21 History Metoprolol Tartrate [Lopressor] 25 mg PO DAILY 02/22/21 04/22/21 History ALPRAZolam [Xanax] 0.25 mg PO DAILY PRN 07/11/22 07/11/22 History Albuterol Sulfate [Albuterol 1 puff PO RT-Q4H PRN 07/11/22 07/11/22 History Sulfate Hfa] Aspirin EC [Ecotrin Low Dose] 81 mg PO DAILY 07/11/22 07/11/22 History amLODIPine [Norvasc] 5 mg PO DAILY 07/11/22 07/11/22 History Allergies Allergy/AdvReac Type Severity Reaction Status Date / Time amoxicillin [From Augmentin] AdvReac Diarrhea Verified 07/11/22 00:57 clavulanic acid AdvReac Diarrhea Verified 07/11/22 00:57 [From Augmentin] Physical Exam Vitals: Vital Signs Temp Pulse Pulse Resp BP BP Pulse Ox 07/11/22 02:59 80 16 07/11/22 02:55 97.7 F 80 16 174/82 97 07/11/22 00:51 97.7 F 103 H 18 196/97 96 Intake and Output 07/10/22 07/11/22 07/11/22 22:59 06:59 14:59 Intake Total 0 Balance 0 Intake: Oral 0 Other: Voiding Method Toilet # Voids 1 Weight 74.843 kg Results 07/11/22 00:57 07/11/22 00:57 Cardiac Enzymes 07/11/22 07/11/22 07/11/22 Range/Units 00:57 00:57 05:15 AST 22 (14-36) U/L Troponin I <0.012 <0.012 (0.000-0.034) ng/mL Coagulation 07/11/22 Range/Units 00:57 PT 9.8 (9.0-12.0) sec APTT 23.9 (22.0-30.0) sec CBC 07/11/22 Range/Units 00:57 WBC 9.4 (3.8-10.6) k/uL RBC 4.35 (3.80-5.40) m/uL Hgb 12.3 (11.4-16.0) gm/dL Hct 36.7 (34.0-46.0) % Plt Count 405 (150-450) k/uL Comprehensive Metabolic Panel 07/11/22 Range/Units 00:57 Sodium 142 (137-145) mmol/L Potassium 4.0 (3.5-5.1) mmol/L Chloride 106 (98-107) mmol/L Carbon Dioxide 26 (22-30) mmol/L BUN 33 H (7-17) mg/dL Creatinine 0.73 (0.52-1.04) mg/dL Glucose 140 H (74-99) mg/dL Calcium 9.5 (8.4-10.2) mg/dL AST 22 (14-36) U/L ALT 20 (4-34) U/L Alkaline Phosphatase 144 H (38-126) U/L Total Protein 7.5 (6.3-8.2) g/dL Albumin 4.3 (3.5-5.0) g/dL Current Medications Generic Name Dose Route Start Last Admin Trade Name Freq PRN Reason Stop Dose Admin Amlodipine Besylate 5 mg 07/11/22 09:00 Amlodipine 5 Mg Tab PO DAILY NADIYA Atorvastatin Calcium 80 mg 07/11/22 04:05 07/11/22 06:57 Atorvastatin 80 Mg Tab PO 80 mg HS NADIYA Administration Heparin Sodium (Porcine) 5,000 unit 07/11/22 08:00 Heparin Sodium,Porcine/Pf 5,000 Unit/0.5 Ml Syringe SQ Q8HR NADIYA Sodium Chloride 1,000 mls @ 20 mls/hr 07/11/22 02:00 07/11/22 04:49 Saline 0.9% IV Not Given .Q24H NADIYA Morphine Sulfate 4 mg 07/11/22 01:53 Morphine Sulfate 4 Mg/Ml Syringe IV Q4HR PRN Severe Pain (Scale 7 to 10) Naloxone HCl 0.2 mg 07/11/22 01:53 Naloxone 0.4 Mg/Ml 1 Ml Vial IV Q2M PRN Opioid Reversal Ondansetron HCl 4 mg 07/11/22 01:53 Ondansetron 4 Mg/2 Ml Vial IVP Q8HR PRN Nausea And Vomiting Intake and Output 07/10/22 07/11/22 07/11/22 22:59 06:59 14:59 Intake Total 0 Balance 0 Intake: Oral 0 Other: Voiding Method Toilet # Voids 1 Weight 74.843 kg 07/11/22 00:57 07/11/22 00:57
--- NOTE | 2022-07-11 10:51 | CA ---
Stress Echo Report Elva Butler Age: 71 Gender: F : 1950 Exam Date: 07/11/2022 10:07 Exam Location: [facility] Ht (in): 62 Wt (lb): 165 Ordering Physician: Hue Thomas Referring Physician: [id number] Halal Butcher: Cindy Puri RDCS Technologist Procedure CPT: Indication: CP ICD-9 Codes: Rhythm: Patient History: Chest pain, Hypertension Cardiac Medications: Medications in past 24 hours: Contrast: Lumason Stress Results Protocol: Dwaine Total dose(mL): 5 Exercise Duration (min:sec): 4:[address] Depression (mm): Angina Score: Doan Score: METS: 6.6 Resting HR: 80 Resting BP: 155 / 88 Peak HR: 132 Peak BP: 217 / 81 Max Predicted HR: 148 89 % Max Predicted HR Target HR: 126 Double Product: [id number] Stress Summary: BP Response: Reason for Termination: Reached target heart rate or work-load Cardiac Symptoms: Test terminated after reaching target heart rate (85% max predicted) ECG Analysis Resting ECG: Stress ECG: Arrhythmia: Echo Analysis Resting Echo: Peak Echo Analysis: MEASUREMENTS (Male/Female) Normal Values CONCLUSIONS Patient underwent exercise stress echo with a Dwaine protocol treadmill stress test. Patient exercised into Stage [] for a total of 2 reaching a total of 6.6 METS. Patient's maximum heart rate was 132 which represented 89% age-predicted maximum heart rate. Stress EKG portion: At baseline patient's EKG showed normal sinus rhythm, normal axis, no significant ST or T wave abnormalities. At peak exercise, EKG showed no significant change from baseline. Stress echo portion: 2-D echocardiogram was performed in the parasternal long, personal short, apical 2 and apical four-chamber views at rest, peak exercise and in recovery. At baseline, echocardiogram showed left ventricular ejection fraction 55% without wall motion abnormalities. With peak exercise, echocardiogram shows improvement in left ventricular ejection fraction, increase contractility, decrease in left ventricular end systolic dimension without wall motion abnormalities consistent with a normal response to exercise. Conclusions: 1. Normal EKG and echo response to exercise without evidence of inducible ischemia. 2. Fair exercise capacity. 3. Normal left ventricular ejection fraction 55% Dr. Farshad Petersen DO (Electronically Signed) Final Date: 11 July 2022 10:50
--- NOTE | 2022-07-11 11:07 | CA ---
Transthoracic Echo Report Name: Elva Butler Age: 71 Gender: F : 1950 Exam Date: 07/11/2022 10:19 Exam Location: [facility] Ht (in): Wt (lb): Ordering Physician: Hue Thomas Attending/Referring Phys: [id number], William Labor Relations Worker Cindy Puri, AZALIA Procedure CPT: Indications: LV function, CP Cardiac Hx: Technical Quality: Contrast 1: Total Dose (mL): Contrast 2: Total Dose (mL): MEASUREMENTS (Male / Female) Normal Values 2D ECHO LV Diastolic Diameter PLAX 4.0 cm 4.2 - 5.9 / 3.9 - 5.3 cm LV Systolic Diameter PLAX 3.0 cm IVS Diastolic Thickness 1.5 cm 0.6 - 1.0 / 0.6 - 0.9 cm LVPW Diastolic Thickness 1.9 cm 0.6 - 1.0 / 0.6 - 0.9 cm LV Relative Wall Thickness 0.9 RV Internal Dim ED PLAX 2.1 cm DOPPLER MV Area PHT 2.5 cm??? Mitral E Point Velocity 52.5 cm/s Mitral A Point Velocity 103.4 cm/s Mitral E to A Ratio 0.5 MV Deceleration Time 305.1 ms MV E' Velocity 4.5 cm/s Mitral E to MV E' Ratio 11.7 FINDINGS Left Ventricle Moderately increased septal wall thickness. Left ventricular cavity size normal. Left ventricular ejection fraction is estimated at 55%. Right Ventricle Normal right ventricular size and function. Right ventricular systolic pressure within normal limits. Right Atrium Normal right atrial size. Left Atrium Normal left atrial size. Mitral Valve Structurally normal mitral valve. Mild mitral regurgitation. Aortic Valve Trileaflet aortic valve. Tricuspid Valve Structurally normal tricuspid valve. Mild tricuspid regurgitation. Pulmonic Valve Structurally normal pulmonic valve. Pericardium Echo free space anterior to the right ventricle likely represents a fat pad. Aorta Normal size aortic root and proximal ascending aorta. CONCLUSIONS Left ventricular ejection fraction 55% Moderate increased left ventricular wall thickness Mild mitral regurgitation Mild tricuspid regurgitation No pericardial effusion Previewed by: Dr. Farshad Petersen DO (Electronically Signed) Final Date: 11 July 2022 11:06
--- NOTE | 2022-07-11 13:04 | P.DS ---
Providers Date of admission: 07/11/22 01:54 Expected date of discharge: 07/11/22 Attending physician: Lory Blanco MD Consults: 07/11/22 01:53 Consult Physician Routine Consulting Provider: Alise Slaughter Consult Reason/Comments: cp Do you want consulting provider notified?: Yes [facility] Course: Discharge Diagnosis: Chest pain, acute coronary event ruled out. Hypertensive urgency, Norvasc was increased to 10 mg daily in addition to continuing metoprolol 25 mg daily. Blood pressures have significantly improved previously 199/67 and upon discharge blood pressure 152/76. Hyperlipidemia, cholesterol level slightly elevated at 201. Patient was recommended to follow heart healthy and carb consistent diet. Hospital Course: Patient is a very pleasant 71-year-old female with a past medical history of hypertension. She presented to the emergency department with a chief complaint of chest pain/discomfort. Patient reported having midsternal and left anterior chest discomfort described as a constant heaviness that radiated into her left arm/shoulder. Patient reports she has been under increased stress after her 's 2 months ago and states this pain has been waxing and waning since. She underwent full evaluation and our emergency department. Upon arrival vital signs assessed revealing tachycardia with heart rate of 103 and hypertensive urgency with blood pressure 199/67. An EKG was completed and upon personal review reveals sinus tachycardia at 102 bpm with no significant T-wave or ST abnormalities showing no signs of acute ischemia. CBC, coags, and CMP were unremarkable with the exception of mild prerenal azotemia with BUN of 33 and slightly elevated alkaline phosphatase of 144. Troponin was negative at less than 0.012 and chest x-ray upon personal review was negative for acute cardiopulmonary process. Patient was admitted under our services of consultation to cardiology. Troponins were trended and all negative at less than 0.0123 draws. Echocardiogram completed revealing normal EF of 55% with mild mitral regurgitation. Patient was evaluated by cardiology and a Stress echo was completed which was reported to be normal EKG and echo response to exercise without evidence of inducible ischemia with fair exercise capacity. Cardiology clearing patient from cardiac perspective recommending outpatient follow-up in our office. Lipid profile did result showing a slightly elevated total cholesterol of 201. Patient was recommended to follow a heart healthy and carb consistent diet, follow-up with PCP in 1-2 days and cardiology in 2 weeks. Patient discharged home with new prescription for Norvasc 10 mg daily. Physical examination: Patient seen and examined at bedside. Vital signs reviewed and stable. General: Nontoxic, no distress and appears stated age. Derm: Skin warm and dry, normal coloration for ethnicity. Head: Atraumatic, normocephalic and symmetric. Eyes: EOMs intact, no lid lag, and anicteric sclera Mouth: no lip lesions, mucus membranes moist Cardiovascular: regular rate and rhythm with normal S1S2, no murmur, positive posterior tibial pulses bilaterally, and cap refill < 2 seconds. Lungs: Respirations even, regular, and unlabored on room air. Lungs CTA bilaterally, no rhonchi, no rales, no wheezing, and no accessory muscle usage. Abdominal: soft, nontender to palpation, no guarding, no appreciable organomegaly Ext: ROM intact. No gross muscle atrophy, no edema, no contractures Neuro: Speech clear, face symmetrical and CN II-XII grossly intact with no noted focal neuro deficits Psych: Alert and oriented to person, place, time, and situation. Appropriate and pleasant affect. A total of 33 minutes of time were spent preparing this complex discharge summary. Pt was discharged on 07/11/22 at 1:01 PM I reviewed the documentation as provided by the DEANDRE above, who is the original author of this note. I agree with the documented assessment and plan, with the following changes: none Patient Condition at Discharge: Stable Plan - Discharge Summary New Discharge Prescriptions: New amLODIPine [Norvasc] 10 mg PO DAILY 30 Days #30 tab Nitroglycerin Sl Tabs [Nitrostat] 0.4 mg SUBLINGUAL Q5M PRN #25 tab PRN Reason: Chest Pain Continue Losartan Potassium 100 mg PO DAILY ALPRAZolam [Xanax] 0.25 mg PO DAILY PRN PRN Reason: Anxiety Albuterol Sulfate [Albuterol Sulfate Hfa] 1 puff PO RT-Q4H PRN PRN Reason: Shortness Of Breath Metoprolol Tartrate [Lopressor] 25 mg PO DAILY Aspirin EC [Ecotrin Low Dose] 81 mg PO DAILY Discontinued amLODIPine [Norvasc] 5 mg PO DAILY Discharge Medication List Losartan Potassium 100 mg PO DAILY 02/22/21 [History] Metoprolol Tartrate [Lopressor] 25 mg PO DAILY 02/22/21 [History] ALPRAZolam [Xanax] 0.25 mg PO DAILY PRN 07/11/22 [History] Albuterol Sulfate [Albuterol Sulfate Hfa] 1 puff PO RT-Q4H PRN 07/11/22 [History] Aspirin EC [Ecotrin Low Dose] 81 mg PO DAILY 07/11/22 [History] Nitroglycerin Sl Tabs [Nitrostat] 0.4 mg SUBLINGUAL Q5M PRN #25 tab 07/11/22 [R x] amLODIPine [Norvasc] 10 mg PO DAILY 30 Days #30 tab 07/11/22 [Rx] Follow up Appointment(s)/Referral(s): Farshad Petersen DO [STAFF PHYSICIAN] - 1 Week (OFFICE WILL CONTACT YOU WITH APPOINTMENT DATE AND TIME.) Jadon Romero DO [Primary Care Provider] - 1-2 days (PLEASE CALL AND SCHEDULE APPOINTMENT.) Patient Instructions/Handouts: Amlodipine (By mouth), Nitroglycerin, Rapid Release (By mouth), Chest Pain (ED), Heart Healthy Diet (DC), Hypertensive Crisis (DC) Activity/Diet/Wound Care/Special Instructions: Activity: As tolerated. Take breaks as needed. Diet: Heart healthy and carb consistent diet. Avoid salts, or foods with hidden salts such as canned or boxed foods and frozen dinners. Extra salt makes your heart work harder and traps the fluid in your body for longer. Special Instructions: Take all of your medications as directed and remember to keep all of your doctor's appointments and follow-up as needed. Recommend monitoring blood pressures daily and documenting these findings in a daily log/Journal to bring with you to your next doctor's appointment with your PCP and scrapper. Additional changes may be needed to current dosing or additional medications may need to be added based upon these findings. Thank you for allowing us to participate in your care, it was truly a pleasure having you for our patient!!! Discharge Disposition: HOME SELF-CARE
== END 2022-07-11 13:46 | disposition home or self-care (01) ==
LOC: EC 00:49 → 6NMEDSUR 01:54
PROVIDERS: ADMIT Internal Medicine; ATTEND Internal Medicine
DX: R07.89 Other chest pain (principal); I10 Essential (primary) hypertension; M19.90 Unspecified osteoarthritis, unspecified site; R00.0 Tachycardia, unspecified; Z90.710 Acquired absence of both cervix and uterus; Z98.1 Arthrodesis status; I08.1 Rheumatic disorders of both mitral and tricuspid valves; E66.9 Obesity, unspecified; Z68.30 Body mass index [BMI] 30.0-30.9, adult; I16.0 Hypertensive urgency; E78.5 Hyperlipidemia, unspecified; Z82.49 Family history of ischemic heart disease and other diseases of the circulatory system; Z87.891 Personal history of nicotine dependence; Z79.82 Long term (current) use of aspirin; Z79.899 Other long term (current) drug therapy; Z88.0 Allergy status to penicillin
CPT/HCPCS: 96372; 99285; 36415; 93005; 93306; 93351; 83880; 80061; 80053; 83690; 83735; 84484; 85025; 85610; 85730; 83036; 71046; G0378; Q9950; J1644

== ENCOUNTER → 2022-07-11 | Outpatient (CLI) | payer MEDICARE ==
--- NOTE | 2022-07-11 14:15 | CT ---
EXAMINATION TYPE: CT chest wo con DATE OF EXAM: 07/11/2022 COMPARISON: Chest CT October 09, 2018. HISTORY: pulmonary nodule CT DLP: 366.8 mGycm. Automated Exposure Control for Dose Reduction was Utilized. TECHNIQUE: CT scan of the thorax is performed without IV contrast. FINDINGS: LUNGS: Stable 6 x 4 mm focal nodule or nodular scarring right midlung anteriorly axial image 26 rocio esponding to lesion along the fissure on sagittal images. Stable 7 x 5 mm nodule inferior to this axi al image 30 in the right middle lobe. No new greater than 5 mm pulmonary nodules. There is no pleura l effusion or pneumothorax seen. The tracheobronchial tree is patent. MEDIASTINUM: Lack of IV contrast is noted to limit evaluation for mediastinal and especially hilar ad enopathy. There are no definitive greater than 1 cm hilar or mediastinal lymph nodes. No cardiomega ly or pericardial effusion is seen. OTHER: Multilevel spurring in the thoracic spine is seen. Visualized liver heterogeneously hypodense consistent with mild diffuse fatty infiltration. Areas of cortical volume loss noted in the bilateral kidneys. IMPRESSION: Stable small nodules presumed benign in the right middle lobe given greater than three-ye ar stability. No new significant pulmonary nodules identified.
== END | disposition home or self-care (01) ==
LOC: RADCTMAIN 13:49
PROVIDERS: ATTEND Family Medicine
DX: R91.8 Other nonspecific abnormal finding of lung field (principal)
CPT/HCPCS: 71250

== ENCOUNTER → 2023-04-12 | Outpatient (CLI) | payer MEDICARE ==
--- NOTE | 2023-04-12 17:14 | BD ---
EXAMINATION TYPE: Axial Bone Density DATE OF EXAM: 04/12/2023 CLINICAL HISTORY: 72 years old Female. ICD-10 CODE: M85.89 Height: 59.25 Weight: 161.5 FRAX RISK QUESTIONS: Alcohol (3 or more units per day): no Family History (Parent hip fracture): no Glucocorticoids (More than 3mos): no History of Fracture in Adulthood: no Secondary Osteoporosis: 1. Type 1 Diabetes: no 2. Hyperthyroidism: no 3. Menopause before 45: no 4. Malnutrition: no 5. Chronic liver disease: no Rheumatoid Arthritis: no Current Tobacco Use: no RISK FACTORS HISTORY OF: Hip Fracture (Right/Left): no Spine Fracture: no History of Wrist Fracture: no Surgery to Spine/Hip(right/left)/Wrist (right/left): no Family History of Osteoporosis: sister Active: yes Diet low in dairy products/other sources of calcium: no Postmenopausal woman: yes Take estrogen and/or progesterone medications: no Lost more than 2 inches in height since high school: yes Frequent falls: yes Poor Health: no Hyperparathyroidism: no Adrenal Insufficiency: no MEDICATIONS: Prednisone or other steroids: no Thyroid Medications:no Osteoporosis Medications: no Additional Medications: BP Meds x2, Cholesterol Meds, Centrum Vit. Additional History: EXAM MEASUREMENTS: Bone mineral densitometry was performed using the [employer] System. Bone mineral density as measured about the Lumbar spine is: ----- L1-L4(G/cm2): 1.536 T Score Values are as follows: ----- L1: 3.4 ----- L2: 3.0 ----- L3: 2.5 ----- L4: 2.9 ----- L1-L4: 3.0 Z Score Values are as follows: ----- L1: 4.9 ----- L2: 4.4 ----- L3: 3.9 ----- L4: 4.4 ----- L1-L4: 4.4 Bone mineral density has: increased 7.9 % since study of: 01/21/2015 Bone mineral density about the R hip (g/cm2): 0.986 Bone mineral density about the L hip (g/cm2): 0.968 T Score values are as follows: -----R Neck: -0.7 -----L Neck: -0.9 -----R Total: -0.2 -----L Total: -0.3 Z Score values are as follows: -----R Neck: 0.9 -----L Neck: 0.8 -----R Total: 1.3 -----L Total: 1.1 Bone mineral density has: decreased -6.5 % since study of: 01/21/2015 FRAX%s: The graph provided illustrates a 4.9% chance for a major osteoporotic fx and a 0.6% chance fo r the hips probability for fx in 10 years time. IMPRESSION: Normal (Values between +1 and -1 indicate normal bone mass). Consider repeating this study in 5 year s or sooner if there is some new clinical indication. NOTE: T-SCORE=SD OF THE YOUNG ADULT MEAN.
--- NOTE | 2023-04-13 21:10 | MM ---
Reason for Exam: Screening (asymptomatic). Last mammogram was performed 1 year(s) and 9 month(s) ago. Patient History: Menarche at age 12. Patient has no children. Left ovary removed at age 46. Right ovary removed at age 46. Hysterectomy at age 46. Postmenopausal. Patient used Estrogen for 7 years. Maternal cousin had breast cancer, age 55. Risk Values: Minal 5 year model risk: 2.0%. NCI Lifetime model risk: 4.8%. Prior Study Comparison: 03/06/2018 Bilateral Screening Mammogram, [facility]. 03/14/2019 Bilateral Screening Mammogram, [facility]. 07/28/2021 Bilateral Screening Mammogram, [facility]. Tissue Density: The breast tissue is heterogeneously dense. This may lower the sensitivity of mammography. Findings: Analyzed By CAD. Chronic nodularity in the right. Benign bilateral vascular and round calcifications. There is no suspicious group of microcalcifications or new suspicious mass in either breast. Overall Assessment: Benign, BI-RAD 2 Management: Screening Mammogram of both breasts in 1 year. . Patient should continue monthly self-breast exams. A clinical breast exam by your physician is recommended on an annual basis. This exam should not preclude additional follow-up of suspicious palpable abnormalities. Note on Minal scores and lifetime risk: 1. A Minal score greater than 3% is considered moderate risk. If this is the case, consider specialist referral to assess eligibility for a risk reducing agent. 2. If overall lifetime risk for the development of breast cancer is 20% or higher, the patient may qualify for future screening with alternating mammogram and breast MRI. Electronically signed and approved by: Rosio Steen M.D. Radiologist
== END | disposition home or self-care (01) ==
LOC: RADBDWWP 15:18
PROVIDERS: ATTEND Family Medicine
DX: Z12.31 Encounter for screening mammogram for malignant neoplasm of breast (principal); M85.89 Other specified disorders of bone density and structure, multiple sites; Z78.0 Asymptomatic menopausal state; Z80.3 Family history of malignant neoplasm of breast
CPT/HCPCS: 77063; 77067; 77080

== ENCOUNTER 2024-03-09 14:19 | Emergency (ER) | payer MEDICARE, OTHER ==
[2024-03-09 14:25] VITALS: RESP 18; TEMP 97.8
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
[2024-03-09] MEDS: LORazepam 2 MG/ML INJ IV STA (15:00)
[2024-03-09] MEDS: SODIUM CHLORIDE 0.9% 500 ML 500 ML IV STA (15:02)
[2024-03-09 15:10] LABS: Basophils % (A) 0 %; Eosinophils # (A) 0.3 k/uL (0-0.7); Eosinophils % (A) 4 %; HCT 35.8 % (34.0-46.0); HGB 11.6 gm/dL (11.4-16.0); Lymphocytes # (A) 1.6 k/uL (1.0-4.8); Lymphocytes % (A) 18 %; MCH 27.8 pg (25.0-35.0); MCHC 32.5 g/dL (31.0-37.0); MCV 85.4 fL (80.0-100.0); Mean Platelet Volume 7.6; Monocytes # (A) 0.4 k/uL (0-1.0); Monocytes % (A) 4 %; Neutrophils # (A) 6.6 k/uL (1.3-7.7); Neutrophils % (A) 73 %; Platelet Count 484 k/uL (150-450); RBC 4.19 m/uL (3.80-5.40); RDW 13.5 % (11.5-15.5)
[2024-03-09 15:19] LABS: INR 0.9 (<1.2); Partial Thromboplastin Time 22.5 sec (22.0-30.0); Prothrombin Time 10.4 sec (10.0-12.5)
[2024-03-09 15:28] LABS: ALT 18 U/L (4-34); AST 27 U/L (14-36); African American GFR (CKD) >90 (>60 ml/min/1.73 sqM); Albumin 4.5 g/dL (3.5-5.0); Alkaline Phosphatase 96 U/L (38-126); Anion Gap 11 mmol/L; Blood Urea Nitrogen 20 mg/dL (7-17); Calcium 9.8 mg/dL (8.4-10.2); Carbon Dioxide 22 mmol/L (22-30); Chloride 109 mmol/L (98-107); Glucose 110 mg/dL (74-99); Magnesium 1.7 mg/dL (1.6-2.3); Non-African American GFR(CKD) 86 (>60 ml/min/1.73 sqM); Potassium 3.8 mmol/L (3.5-5.1); Sodium 142 mmol/L (137-145); Total Bilirubin 0.5 mg/dL (0.2-1.3); Total Protein 7.3 g/dL (6.3-8.2)
--- NOTE | 2024-03-09 15:40 | XR ---
EXAMINATION TYPE: XR chest 2V DATE OF EXAM: 03/09/2024 3:15 PM CLINICAL INDICATION: Female, 73 years old with history of Chest Pain; COMPARISON: Chest radiographs from 07/11/2022 TECHNIQUE: XR chest 2V Frontal view of the chest. FINDINGS: Lungs/Pleura: There is no evidence of pleural effusion, focal consolidation, or pneumothorax. Pulmonary vascularity: Unremarkable. Heart/mediastinum: Cardiomediastinal silhouette is unremarkable. Musculoskeletal: No acute osseous pathology. Other findings: None IMPRESSION: No acute cardiopulmonary disease/process.
[2024-03-09 17:09] VITALS: BP 133/81; PULSE 78
== END 2024-03-09 17:09 | disposition home or self-care (01) ==
LOC: EC 14:19
DX: R55 Syncope and collapse
CPT/HCPCS: 36415; 71046; 80053; 83735; 84484; 85025; 85610; 85730; 93005; 96374; 99285

== ENCOUNTER → 2024-09-12 | Outpatient (CLI) | payer MEDICARE ==
--- NOTE | 2024-09-12 16:17 | MM ---
Reason for Exam: Screening (asymptomatic). Last mammogram was performed 1 year(s) and 5 month(s) ago. Patient History: Menarche at age 12. Patient has no children. Left ovary removed at age 46. Right ovary removed at age 46. Hysterectomy at age 46. Postmenopausal. Patient used Estrogen for 7 years. Maternal cousin had breast cancer, age 55. Risk Values: Minal 5 year model risk: 2.0%. NCI Lifetime model risk: 4.5%. Prior Study Comparison: 03/14/2019 Bilateral Screening Mammogram, [facility]. 07/28/2021 Bilateral Screening Mammogram, [facility]. 04/12/2023 Bilateral MG 3D screening mammo w/cad, [facility]. Tissue Density: The breasts are heterogeneously dense, which may obscure small masses. Findings: Analyzed By CAD. Unchanged intramammary lymph node lateral right breast. Benign vascular calcifications and a few oil cyst calcifications on the left. There is no suspicious group of microcalcifications or new suspicious mass in either breast. Overall Assessment: Benign, BI-RAD 2 Management: Screening Mammogram of both breasts in 1 year. Patient should continue monthly self-breast exams. A clinical breast exam by your physician is recommended on an annual basis. This exam should not preclude additional follow-up of suspicious palpable abnormalities. Note on Minal scores and lifetime risk: 1. A Mnial score greater than 3% is considered moderate risk. If this is the case, consider specialist referral to assess eligibility for a risk reducing agent. 2. If overall lifetime risk for the development of breast cancer is 20% or higher, the patient may qualify for future screening with alternating mammogram and breast MRI. [facility], , 09/12/2024 4:14 PM. Electronically signed and approved by: Rosio Steen M.D. Radiologist
== END | disposition home or self-care (01) ==
LOC: RADMAMWWP 13:56
PROVIDERS: ATTEND Family Medicine
DX: Z12.31 Encounter for screening mammogram for malignant neoplasm of breast (principal); R92.333 Mammographic heterogeneous density, bilateral breasts; Z78.0 Asymptomatic menopausal state; Z80.3 Family history of malignant neoplasm of breast
CPT/HCPCS: 77063; 77067